=== PATIENT | male | born 1945 | race Caucasian/White ===

== ENCOUNTER 2020-05-12 03:07 | Inpatient (IN) | payer MEDICARE, OTHER ==
[~2020-05-12] VITALS: Ht 172.7 cm; Wt 65.1 kg
--- NOTE | 2020-05-12 03:56 | RAD ---
XR FEMUR_LEFT 1 VIEW, XR PELVIS 1-2V 05/12/2020 3:27 AM INDICATION: Fall COMPARISON: None available. TECHNIQUE: AP view the pelvis and 4 views of the left femur are provided. FINDINGS/ IMPRESSION: Left total hip arthroplasty is identified. There is an obliquely oriented fracture with minimal displ acement involving the distal margin of the femoral hardware. Adjacent soft tissue swelling is present . Vascular calcifications are present. Pelvic ring appears intact. Electronically signed by: Jeanne Short MD (05/12/2020 3:53 AM) YFN
--- NOTE | 2020-05-12 04:06 | RAD ---
XR CHEST 1V 05/12/2020 4:02 AM INDICATION: Preoperative COMPARISON: None available TECHNIQUE: Portable frontal view of the chest is provided. FINDINGS: The cardiomediastinal silhouette is within normal limits. Lungs are clear. There are no significant pleural effusions. There is no pulmonary vascular congestion. No pneumothora x. No suspicious osseous abnormality. IMPRESSION: There is no acute cardiopulmonary process. Electronically signed by: Jeanne Short MD (05/12/2020 4:04 AM) [facility]
[2020-05-12 04:43] LABS: BASO # 0.1 x10^3/uL (0.0-0.2); BASO % 1 % (0-3); EOS # 0.2 x10^3/uL (0.0-0.7); EOS % 2 % (0-3); HEMATOCRIT 40.5 % (39.0-53.0); HEMOGLOBIN 13.7 g/dL (13.0-17.5); LYMPH # 1.4 x10^3/uL (1.0-4.8); LYMPH % 18 % (24-48); MEAN CORPUSCULAR HEMOGLOBIN 30 pg (25-35); MEAN CORPUSCULAR HGB CONC 34 g/dL (31-37); MEAN CORPUSCULAR VOLUME 90 fL (79-100); MONO # 0.7 x10^3/uL (0.0-1.1); MONO % 10 % (0-9); NEUT # 5.2 x10^3/uL (1.8-7.7); NEUT % 69 % (31-73); PLATELET COUNT 193 x10^3/uL (140-400); RED BLOOD COUNT 4.51 x10^6/uL (4.30-5.70); RED CELL DISTRIBUTION WIDTH 14.3 % (11.5-14.5); WHITE BLOOD COUNT 7.5 x10^3/uL (4.0-11.0)
[2020-05-12 04:51] LABS: CALCIUM 9.2 mg/dL (8.5-10.1); CREATININE 1.7 mg/dL (0.7-1.3); GFR 39.6; POTASSIUM 4.8 mmol/L (3.5-5.1)
--- NOTE | 2020-05-12 05:43 | ED.ADGEN ---
Past Medical History Past Medical History: Dementia, Depression, High Cholesterol, Hypertension, Other Additional Past Medical Histor: CKD, antisocial personality d/o Past Surgical History: Appendectomy, Other Smoking Status: Never Smoker Alcohol Use: None General Adult EDM: Chief Complaint: MECHANICAL FALL HPI: HPI: Patient 75-year-old male who presents to the emergency room complaining of left hip pain. Patient had a fall from standing 4 days ago. He was able to walk on his leg with his walker but over the last 24 hours has had increasing difficulty with walking and this morning he could not walk at all. He states the pain radiates into his knee. He has had problems with this leg previously. He has a hip replacement but cannot remember who did his hip replacement. He denies hitting his head or any other injuries from the fall. He has no other complaints. Review of Systems: Review of Systems: Complete ROS is negative unless otherwise documented in HPI Allergies: Allergies: Allergies Coded Allergies Type Severity Reaction Last Updated Verified No Known Drug Allergies 05/12/20 No Physical Exam: PE: General: Awake, alert, NAD. Well Nourished, well hydrated. Cooperative HEENT: Atraumatic, EOMI, PERRL, airway patent, moist oral mucosa Neck: Supple, trachea midline Respiratory: CTA bilaterally, normal effort, no wheezing/crackles CV: RRR, no murmur, cap refill <2 GI: Soft, nondistended, nontender, no masses MSK: Left hip tenderness, swelling to the thigh Skin: Warm, dry, intact Neuro: A&O x1, speech NL, sensory and motor grossly intact, no focal deficits Psych: Normal affect, normal mood, not suicidal or homicidal Current Patient Data: Labs: Laboratory Tests Test 05/12/20 04:30 White Blood Count 7.5 x10^3/uL (4.0-11.0) Red Blood Count 4.51 x10^6/uL (4.30-5.70) Hemoglobin 13.7 g/dL (13.0-17.5) Hematocrit 40.5 % (39.0-53.0) Mean Corpuscular Volume 90 fL (79-100) Mean Corpuscular Hemoglobin 30 pg (25-35) Mean Corpuscular Hemoglobin Concent 34 g/dL (31-37) Red Cell Distribution Width 14.3 % (11.5-14.5) Platelet Count 193 x10^3/uL (140-400) Neutrophils (%) (Auto) 69 % (31-73) Lymphocytes (%) (Auto) 18 % (24-48) L Monocytes (%) (Auto) 10 % (0-9) H Eosinophils (%) (Auto) 2 % (0-3) Basophils (%) (Auto) 1 % (0-3) Neutrophils # (Auto) 5.2 x10^3/uL (1.8-7.7) Lymphocytes # (Auto) 1.4 x10^3/uL (1.0-4.8) Monocytes # (Auto) 0.7 x10^3/uL (0.0-1.1) Eosinophils # (Auto) 0.2 x10^3/uL (0.0-0.7) Basophils # (Auto) 0.1 x10^3/uL (0.0-0.2) Sodium Level 137 mmol/L (136-145) Potassium Level 4.8 mmol/L (3.5-5.1) Chloride Level 102 mmol/L (98-107) Carbon Dioxide Level 27 mmol/L (21-32) Anion Gap 8 (6-14) Blood Urea Nitrogen 27 mg/dL (8-26) H Creatinine 1.7 mg/dL (0.7-1.3) H Estimated GFR (Cockcroft-Gault) 39.6 Glucose Level 101 mg/dL (70-99) H Calcium Level 9.2 mg/dL (8.5-10.1) Laboratory Tests 05/12/20 04:30 Laboratory Tests 05/12/20 04:30 Vital Signs: Vital Signs Date Time Temp Pulse Resp B/P (MAP) Pulse Ox O2 Delivery O2 Flow Rate FiO2 05/12/20 03:15 98.4 83 20 146/72 (96) 98 Room Air 98.4 EKG: EKG: [] Heart Score: Risk Factors: Risk Factors: DM, Current or recent (<one month) smoker, HTN, HLP, family history of CAD, obesity. Risk Scores: Score 0 - 3: 2.5% MACE over next 6 weeks - Discharge Home Score 4 - 6: 20.3% MACE over next 6 weeks - Admit for Clinical Observation Score 7 - 10: 72.7% MACE over next 6 weeks - Early Invasive Strategies Radiology/Procedures: Radiology/Procedures: [] Course & Med Decision Making: Course & Med Decision Making Pertinent Labs and Imaging studies reviewed. (See chart for details) Patient is a 75-year-old male who presents to the emergency room complaining of hip pain after fall 4 days ago. X-rays were done and patient has a femur fracture. Preop labs, EKG, Covid test were ordered. Patient was discussed with orthopedic surgeon who will evaluate him for surgery today. Work up was reviewed and was remarkable for []. At this time, patient would benefit from further work up and management. Patient is not stable for discharge at this time. Results, vitals, interventions, and plan was discussed with the patient. Patient was given opportunity to ask any questions and are in agreement with plan for admission. Patient was discussed with admitting physician and bridge admission orders were placed. Further care will be managed by inpatient team. Sarbjit Disclaimer: Sarbjit Disclaimer: This electronic medical record was generated, in whole or in part, using a voice recognition dictation system. Departure Departure Impression: Primary Impression: Fall Additional Impression: Femur fracture Disposition: 09 ADMITTED INPT THIS HOSP Condition: STABLE Referrals: NO PCP (PCP) Problem Qualifiers HILLARY MANTILLA MD May 12, 2020 05:43
[2020-05-12] MEDS ORDERED: PROCHLORPERAZINE 10 MG/2 ML VIAL. IVP PRN (07:15)
[2020-05-12] MEDS ORDERED: fentaNYL PF VIAL 100 MCG/2 ML VIAL IVP PRN ×2 (07:15)
[2020-05-12] MEDS ORDERED: MORPHINE SULFATE 2 MG/ML VIAL. IVP PRN (07:15)
[2020-05-12] MEDS ORDERED: LIDOCAINE 1% PF 2 ML VIAL. ID PRN (07:15)
[2020-05-12] MEDS ORDERED: IV RINGERS,LACTATED 1000ML 1,000 ML IV SCH (07:15)
[2020-05-12] MEDS ORDERED: ONDANSETRON PF 4 MG/2 ML VIAL. IVP PRN (07:15)
[2020-05-12] MEDS ORDERED: HYDROmorphone 2 MG/ML VIAL IVP PRN (07:15)
--- NOTE | 2020-05-12 08:14 | PDOC1 ---
History and Physical Date of Service: DOS: DATE: 05/12/20 TIME: 08:10 Chief Complaint: Chief Complain: fall History of Present Illness: HPI: 75-year-old male who presents to the emergency room complaining of left hip pain. Patient experienced a fall about 4 days ago. He states that he is unsure why he fell. He denies any loss of consciousness or dizziness or unsteady gait. He was able to walk on his leg with his walker but over the last 24 hours has had increasing difficulty with walking and this morning he could not walk at all. He states the pain radiates into his knee. He has had problems with this leg previously. He has a hip replacement but cannot remember who did his hip replacement. He denies hitting his head or any other injuries from the fall. He has no other complaints. X-rays were done and patient has a femur fracture. Preop labs, EKG, Covid test were ordered. Patient was discussed with orthopedic surgeon who will evaluate him for surgery today. Past Medical/Surgical History: PMH/PSH: Past Medical History: Dementia, Depression, High Cholesterol, Hypertension, CKD, antisocial personality d/o Past Surgical History: Appendectomy Allergies: Allergies: Coded Allergies: No Known Drug Allergies (Unverified , 05/12/20) Family History: Family History: Reviewed with no relevant history Social History: Social History: Smoking Status: Never Smoker Alcohol Use: None Current Medications: Current Medications Current Medications Ondansetron HCl (Zofran) 4 mg PRN Q6HRS PRN IVP NAUSEA/VOMITING; Start 05/12/20 at 07:15; Stop 05/12/20 at 20:00 Fentanyl Citrate (Fentanyl 2ml Vial) 25 mcg PRN Q5MIN PRN IVP MILD PAIN 1-3; Start 05/12/20 at 07:15; Stop 05/12/20 at 20:00 Fentanyl Citrate (Fentanyl 2ml Vial) 50 mcg PRN Q5MIN PRN IVP MODERATE TO SEVERE PAIN; Start 05/12/20 at 07:15; Stop 05/12/20 at 20:00 Morphine Sulfate (Morphine Sulfate) 1 mg PRN Q10MIN PRN IVP SEVERE PAIN 7-10; Start 05/12/20 at 07:15; Stop 05/12/20 at 20:00 Ringer's Solution 1,000 ml @ 30 mls/hr Q24H IV ; Start 05/12/20 at 07:15; Stop 05/12/20 at 19:14 Lidocaine HCl (Xylocaine-Mpf 1% 2ml Vial) 2 ml 1X PRN PRN ID IV START; Start 05/12/20 at 07:15; Stop 05/12/20 at 20:00 Hydromorphone HCl (Dilaudid) 0.5 mg PRN Q10MIN PRN IVP SEV PAIN, Second choice; Start 05/12/20 at 07:15; Stop 05/12/20 at 20:00 Prochlorperazine Edisylate (Compazine) 5 mg PACU PRN PRN IVP NAUSEA, MRX1; Start 05/12/20 at 07:15; Stop 05/12/20 at 20:00 ROS: Review of Systems Review of System REVIEW OF SYSTEMS: GENERAL: Denies weakness SKIN: No bruising, hair changes or rashes. EYES: No blurred, double or loss of vision. NOSE AND THROAT: No history of nosebleeds, hoarseness or sore throat. HEART: No history of palpitations, chest pain or shortness of breath on exertion. LUNGS: Denies cough, hemoptysis, wheezing or shortness of breath. GASTROINTESTINAL: Denies changes in appetite, nausea, vomiting, diarrhea or constipation. GENITOURINARY: No history of frequency, urgency, hesitancy or nocturia. NEUROLOGIC: Denies history of numbness, tingling, or tremor. PSYCHIATRIC: No history of panic, anxiety or depression. ENDOCRINE: No history of heat or cold intolerance, polyuria or polydipsia. EXTREMITIES: Denies joint pain, pain on walking or stiffness. Physical Exam: Vital Signs: Vital Signs Date Time Temp Pulse Resp B/P (MAP) Pulse Ox O2 Delivery O2 Flow Rate FiO2 05/12/20 07:23 82 96 05/12/20 03:15 98.4 20 146/72 (96) Room Air 98.4 Physcial Exam: GEN: No apparent distress. Alert and oriented HEENT: Normal cephalic, atraumatic, external auditory canals are patent EYES: Extraocular muscles are intact, pupil are equally round and reactive to light and accommodation MUSCULOSKELETAL: Well developed , well nourished, good range of motion ENDOCRINE: No thyromegaly was palpated LYMPHATICS: No cervical chain or axillary nodes were noted HEMATOPOIETIC: No bruising NECK: Supple, no JVD, no thyromegaly was noted LUNGS: Clear to auscultation in all lung cagle without rhonchi or wheezing HEART: RRR, S!, S2 present. Peripheral pulses intact, no obvious murmurs noted ABDOMEN: Soft, nontender. Positive bowel sounds, no organomegaly, normal bowel sounds EXTREMITIES: Without clubbing, cyanosis, or edema. Pedal pulses intact. Negative Homans sign NEUROLOGIC: Normal speech and tone. A&O x 3, moves all extremities, no ob vious focal deficits PSYCHIATRIC: Normal affect, normal mood. Stable SKIN: No ulcerations or rashes, good skin turgor, no jaundice VASCULAR: Good capillary refill, neurovascular bundle appears to be intact Labs: Labs: Laboratory Tests Test 05/12/20 04:30 05/12/20 05:30 05/12/20 07:17 White Blood Count 7.5 x10^3/uL (4.0-11.0) Red Blood Count 4.51 x10^6/uL (4.30-5.70) Hemoglobin 13.7 g/dL (13.0-17.5) Hematocrit 40.5 % (39.0-53.0) Mean Corpuscular Volume 90 fL (79-100) Mean Corpuscular Hemoglobin 30 pg (25-35) Mean Corpuscular Hemoglobin Concent 34 g/dL (31-37) Red Cell Distribution Width 14.3 % (11.5-14.5) Platelet Count 193 x10^3/uL (140-400) Neutrophils (%) (Auto) 69 % (31-73) Lymphocytes (%) (Auto) 18 % (24-48) Monocytes (%) (Auto) 10 % (0-9) Eosinophils (%) (Auto) 2 % (0-3) Basophils (%) (Auto) 1 % (0-3) Neutrophils # (Auto) 5.2 x10^3/uL (1.8-7.7) Lymphocytes # (Auto) 1.4 x10^3/uL (1.0-4.8) Monocytes # (Auto) 0.7 x10^3/uL (0.0-1.1) Eosinophils # (Auto) 0.2 x10^3/uL (0.0-0.7) Basophils # (Auto) 0.1 x10^3/uL (0.0-0.2) Sodium Level 137 mmol/L (136-145) Potassium Level 4.8 mmol/L (3.5-5.1) Chloride Level 102 mmol/L (98-107) Carbon Dioxide Level 27 mmol/L (21-32) Anion Gap 8 (6-14) Blood Urea Nitrogen 27 mg/dL (8-26) Creatinine 1.7 mg/dL (0.7-1.3) Estimated GFR (Cockcroft-Gault) 39.6 Glucose Level 101 mg/dL (70-99) Calcium Level 9.2 mg/dL (8.5-10.1) SARS-CoV-2 Antigen (Rapid) Negative (NEGATIVE) Troponin I Quantitative 0.296 ng/mL (0.000-0.055) Laboratory Tests Test 05/12/20 04:30 05/12/20 05:30 05/12/20 07:17 White Blood Count 7.5 x10^3/uL (4.0-11.0) Red Blood Count 4.51 x10^6/uL (4.30-5.70) Hemoglobin 13.7 g/dL (13.0-17.5) Hematocrit 40.5 % (39.0-53.0) Mean Corpuscular Volume 90 fL (79-100) Mean Corpuscular Hemoglobin 30 pg (25-35) Mean Corpuscular Hemoglobin Concent 34 g/dL (31-37) Red Cell Distribution Width 14.3 % (11.5-14.5) Platelet Count 193 x10^3/uL (140-400) Neutrophils (%) (Auto) 69 % (31-73) Lymphocytes (%) (Auto) 18 % (24-48) Monocytes (%) (Auto) 10 % (0-9) Eosinophils (%) (Auto) 2 % (0-3) Basophils (%) (Auto) 1 % (0-3) Neutrophils # (Auto) 5.2 x10^3/uL (1.8-7.7) Lymphocytes # (Auto) 1.4 x10^3/uL (1.0-4.8) Monocytes # (Auto) 0.7 x10^3/uL (0.0-1.1) Eosinophils # (Auto) 0.2 x10^3/uL (0.0-0.7) Basophils # (Auto) 0.1 x10^3/uL (0.0-0.2) Sodium Level 137 mmol/L (136-145) Potassium Level 4.8 mmol/L (3.5-5.1) Chloride Level 102 mmol/L (98-107) Carbon Dioxide Level 27 mmol/L (21-32) Anion Gap 8 (6-14) Blood Urea Nitrogen 27 mg/dL (8-26) Creatinine 1.7 mg/dL (0.7-1.3) Estimated GFR (Cockcroft-Gault) 39.6 Glucose Level 101 mg/dL (70-99) Calcium Level 9.2 mg/dL (8.5-10.1) SARS-CoV-2 Antigen (Rapid) Negative (NEGATIVE) Troponin I Quantitative 0.296 ng/mL (0.000-0.055) Images: Images CXR Impression: 1. No acute cardiopulmonary process. HIP XR IMPRESSION: Left total hip arthroplasty is identified. There is an obliquely oriented fracture with minimal displacement involving the distal margin of the femoral hardware. Adjacent soft tissue swelling is present. Vascular calcifications are present. Pelvic ring appears intact. Assessment/Plan Assessment/Plan Mechanical fall NEYDA due to vasomotor nephropathy Elevated troponins concern for demand ischemia Admit to medicine for further management Fall precautions Orthopedic consult Cardiology consult for preoperative risk ratification Lovenox for DVT prophylaxis Protonix GI prophylaxis ADA diet Full code Discussed with RN and SW Disposition pending Ortho evaluation Surrogate decision maker is undesignated Justifications for Admission Other Justification NOE MANUEL MD May 12, 2020 08:14
[2020-05-12] MEDS ORDERED: ASPIRIN CHEWABLE 81 MG TABLET. PO ONE (09:00)
--- NOTE | 2020-05-12 09:04 | PDOC2 ---
DANA MCCARTY WEB MARKETING SPECIALIST 05/12/20 0904: CARDIAC CONSULT DATE OF CONSULT Date of Consult DATE: 05/12/20 TIME: 08:49 REASON FOR CONSULT Reason for Consult: Elevated troponin REFERRING PHYSICIAN Referring Physician: Dr. Velazquez SOURCE Source: Chart review HISTORY OF PRESENT ILLNESS HISTORY OF PRESENT ILLNESS This is a 75 yo male who presented from nursing facility secondary to left hip pain. Pain had a fall the evening of 05/09. Was reaching for remote control and feel. No complaints of dizziness or syncope. Did not his head. No obvious injury. Had full ROM of extremities. Over the last 24hrs, has had increasing difficulty ambulating with walker. At 3 am yesterday, had complaints of chest pain, back pain and hip pain. Blood pressure was 164/80. No SOA. He was brought into the ED for further evaluation and treatment. Has had previous hip replacement. Further imaging noted an obliquely oriented fracture with minimal displacement involving the distal margin of the femoral hardware. Due to complaints of chest pain, troponin level was obtained. Was noted to be mildly elevated, which prompted this consult. Patient reports he has been experiencing sharp pain in his right chest for the last month. Radiated around to his back. Has been occurring daily. Last for about 30 minutes and resolved without intervention. Not related to anything specific. No associated dizziness, diaphoresis, palpitations, or SOA. EKG shows SR with lateral twave inversions. No previous for comparison. No known previous cardiac workup. PAST MEDICAL HISTORY Cardiovascular: HTN, Hyperlipidemia CENTRAL NERVOUS SYSTEM: Dementia Psych: Depression, Other Musculoskeletal: Osteoarthritis Renal/: Chronic renal insuff PAST SURGICAL HISTORY Past Surgical History: Total hip replacement (left ), Other FAMILY HISTORY Family History: Other (non contributory ) SOCIAL HISTORY Smoke: No ALCOHOL: none Drugs: None Lives: [facility] ALLERGIES ALLERGIES: Coded Allergies: No Known Drug Allergies (Unverified , 05/12/20) ROS Review of System 14 point ROS conducted with pertinent positives noted above in hPI PHYSICAL EXAM General: Alert, Oriented X3, Cooperative, No acute distress HEENT: Atraumatic Lungs: Clear to auscultation Heart: Regular rate Abdomen: Soft Extremities: No edema, Other (left hip pain ) Skin: No significant lesion Neuro: Normal speech, Sensation intact Psych/Mental Status: Mental status NL, Mood NL MUSCULOSKELETAL: Osteoarthritic changes both hands VITALS/I&O VITALS/I&O: Vital Signs Date Time Temp Pulse Resp B/P (MAP) Pulse Ox O2 Delivery O2 Flow Rate FiO2 05/12/20 08:36 67 94 05/12/20 03:15 98.4 20 146/72 (96) Room Air 98.4 LABS Lab: Laboratory Tests Test 05/12/20 04:30 05/12/20 05:30 05/12/20 07:17 White Blood Count 7.5 x10^3/uL (4.0-11.0) Red Blood Count 4.51 x10^6/uL (4.30-5.70) Hemoglobin 13.7 g/dL (13.0-17.5) Hematocrit 40.5 % (39.0-53.0) Mean Corpuscular Volume 90 fL (79-100) Mean Corpuscular Hemoglobin 30 pg (25-35) Mean Corpuscular Hemoglobin Concent 34 g/dL (31-37) Red Cell Distribution Width 14.3 % (11.5-14.5) Platelet Count 193 x10^3/uL (140-400) Neutrophils (%) (Auto) 69 % (31-73) Lymphocytes (%) (Auto) 18 % (24-48) L Monocytes (%) (Auto) 10 % (0-9) H Eosinophils (%) (Auto) 2 % (0-3) Basophils (%) (Auto) 1 % (0-3) Neutrophils # (Auto) 5.2 x10^3/uL (1.8-7.7) Lymphocytes # (Auto) 1.4 x10^3/uL (1.0-4.8) Monocytes # (Auto) 0.7 x10^3/uL (0.0-1.1) Eosinophils # (Auto) 0.2 x10^3/uL (0.0-0.7) Basophils # (Auto) 0.1 x10^3/uL (0.0-0.2) Sodium Level 137 mmol/L (136-145) Potassium Level 4.8 mmol/L (3.5-5.1) Chloride Level 102 mmol/L (98-107) Carbon Dioxide Level 27 mmol/L (21-32) Anion Gap 8 (6-14) Blood Urea Nitrogen 27 mg/dL (8-26) H Creatinine 1.7 mg/dL (0.7-1.3) H Estimated GFR (Cockcroft-Gault) 39.6 Glucose Level 101 mg/dL (70-99) H Calcium Level 9.2 mg/dL (8.5-10.1) SARS-CoV-2 Antigen (Rapid) Negative (NEGATIVE) Troponin I Quantitative 0.296 ng/mL (0.000-0.055) Laboratory Tests 05/12/20 04:30 Laboratory Tests 05/12/20 04:30 ASSESSMENT/PLAN ASSESSMENT/PLAN 1. Left hip pain secondary to fall 05/09 with fracture of the distal margin of the femoral hardware. 2. Chest pain, atypical features. 3. Mild troponin elevation; initial 0.2. EKG with lateral t-wave inversion. No previous for comparison. No known previous cardiac workup 4. CKD 5. Hypertension; controlled 6. Hyperlipidemia 7. Dementia Recommendations ASA Lipids Trend troponin Echo to assess LV systolic function Further pending above. SHANNON BUI MD 05/12/20 6947: CARDIAC CONSULT ASSESSMENT/PLAN ASSESSMENT/PLAN Patient seen and evaluated. I agree with our nurse practitioners assessment and plan. Left hip pain secondary to fall 05/09 with fracture of the distal margin of the femoral hardware. Orthopedic evaluation pending. Chest pain, atypical features. Minimal elevation of troponin at 0.2. EKG with lateral T wave inversions with no previous EKGs. Will trend troponin. Start aspirin. Check an echocardiogram for LV function. CKD. Monitoring lab. Hypertension; controlled Hyperlipidemia. Checking a lipid panel. DANA MCCARTY APRN May 12, 2020 09:04 SHANNON BUI MD May 12, 2020 17:53
--- NOTE | 2020-05-12 12:30 | EKG ---
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
[2020-05-12] MEDS ORDERED: LIDOCAINE 2% PF 5 ML VIAL. ONE (12:55)
[2020-05-12] MEDS ORDERED: fentaNYL PF VIAL 100 MCG/2 ML VIAL ONE (12:55)
[2020-05-12] MEDS ORDERED: PROPOFOL 10 MG/ML (20ML) VIAL. IV ONE (12:55)
[2020-05-12] MEDS ORDERED: PERFLUTREN PROTEIN-A MICROSPHR 0.22 MG/ML 3 ML VIAL. IV ONE ×2 (14:55→15:00)
[2020-05-12 15:00] VITALS: BP 171/80
[2020-05-12 19:00] VITALS: BP 186/89
[2020-05-12] MEDS: METOPROLOL TART IMMED RELEASE 25 MG TABLET. PO SCH (20:48)
[2020-05-12] MEDS: fentaNYL PF VIAL 100 MCG/2 ML VIAL IVP PRN (20:52)
--- NOTE | 2020-05-12 20:59 | CONS ---
DATE OF CONSULTATION: 05/12/2020 REQUESTING PHYSICIAN: Dr. Kaity Topete from [facility] as well as Dr. Tomas Owusu. REASON FOR CONSULTATION: Left periprosthetic femur fracture. HISTORY OF PRESENT ILLNESS: The patient is a 75-year-old male, resident of the [facility], who according to the staff at the facility had a fall from standing height about 4 days ago and had previously been ambulatory with a walker and sometimes assistance of a gait belt and does have dementia, but noted increasing pain and refusal to bear weight on the left leg and he could not walk even with assistance of the walker or other assistance and has pain in the left hip and thigh area. He does have a history of previous hip replacement on that side, but he does not remember where it was done nor did anyone in the facility that I spoke with. As the patient has dementia, some of the medical history had been obtained from speaking to his caregivers at the [facility] as well as the minimal amount from the patient himself. He does, however, deny any loss of consciousness or head injury due to the fall. PAST MEDICAL HISTORY: Significant for: 1. Dementia. 2. Hypercholesterolemia. 3. Hypertension. 4. Depression. 5. Diagnosis of antisocial personality disorder. PAST SURGICAL HISTORY: 1. Appendectomy. 2. Hemiarthroplasty for hip fracture earlier this year. ALLERGIES: He has no known drug allergies. SOCIAL HISTORY: Denies smoking, alcohol or drug use. This is consistently documented in his information from the facility as well. FAMILY HISTORY: Unknown. MEDICATIONS: List is reviewed. REVIEW OF SYSTEMS: Generally unreliable due to his dementia; however, he again complains of hip pain. Denies any other joint pain. Again, denies any loss of consciousness or other injury or weakness due to the fall. PHYSICAL EXAMINATION: GENERAL: He is somewhat confused, but is able to participate in the examination. EXTREMITIES: He is able to move both shoulders, elbows and wrists without any difficulty. No tenderness, instability or pain on palpation is present. No tenderness on palpation over the neck or back. No obvious facial trauma. On examination of lower extremities, he has pain with movement of the left hip or palpation over the left thigh area. There is no gross instability, but he does have tenderness on weightbearing through an extended left extremity, not present on the right. Negative straight leg raise is present on either side. Normal alignment with stability, bilateral knees and ankles. Normal examination of the contralateral right hip. On the left hip, an incision from previous hemiarthroplasty of his left hip. He appears to have intact motor function, distal pulses, sensation, reflexes, skin in both upper and lower extremities throughout. IMAGING: X-rays of the left femur show a well-fixated bipolar hemiarthroplasty component with evidence of an oblique fracture with minimal displacement at the distal portion of the femoral stem. IMPRESSION: 1. Left periprosthetic femur fracture. 2. Dementia. 3. Previous ambulation with assistance of a walker or assistance with a gait belt at his half-way facility. TREATMENT PLAN: His fracture is not displaced at this time. I am concerned, however, based on the course of events at the facility as well as his dementia that it may be very difficult to keep him restricted in terms of protected minimal weightbearing to allow healing. There is a significant chance of displacement and I am also concerned potentially if he does forget and inadvertently walk or put weight on this and the fracture does displace, he could potentially undergo another fall with other injury possible. I therefore obstetrician gynecologist that overall given the stress concentration at the tip of the implant that some supplemental fixation would be recommended to allow him to ambulate really without restriction, particularly given the risk factors that he has and the factors that would limit his compliance. Currently, he is undergoing workup for cardiac issues as his troponin was elevated and we can further evaluate risk for potential surgical intervention with his cardiac and medical consultants. CHRISTOPHER CALDERON MD DR: CHARMAINE/cesia JOB#: [id number] / [id number]
--- NOTE | 2020-05-12 22:17 | EKG ---
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
--- NOTE | 2020-05-12 22:20 | EKG ---
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
[2020-05-12 23:00] VITALS: BP 144/76
[2020-05-12] MEDS ORDERED: ACET325T9 PO (23:27)
[2020-05-12] MEDS ORDERED: ASPI-630 PO (23:30)
[2020-05-12] MEDS ORDERED: CYAN10002 IM (23:30)
[2020-05-12] MEDS ORDERED: LISI2.5T PO (23:30)
[2020-05-12] MEDS ORDERED: FOLI0.8T5 PO (23:30)
[2020-05-13] MEDS: fentaNYL PF VIAL 100 MCG/2 ML VIAL IVP PRN ×2 (02:41→15:25)
[2020-05-13 03:00] VITALS: BP 113/39
[2020-05-13 07:00] VITALS: BP 159/83
[2020-05-13] MEDS: ASPIRIN ENTERIC COATED 81 MG TABLET.DR. PO SCH (08:00)
[2020-05-13 08:50] LABS: BASO # 0.1 x10^3/uL (0.0-0.2); BASO % 1 % (0-3); EOS # 0.2 x10^3/uL (0.0-0.7); EOS % 2 % (0-3); HEMATOCRIT 38.7 % (39.0-53.0); HEMOGLOBIN 13.1 g/dL (13.0-17.5); LYMPH # 1.1 x10^3/uL (1.0-4.8); LYMPH % 14 % (24-48); MEAN CORPUSCULAR HEMOGLOBIN 30 pg (25-35); MEAN CORPUSCULAR HGB CONC 34 g/dL (31-37); MEAN CORPUSCULAR VOLUME 90 fL (79-100); MONO # 0.7 x10^3/uL (0.0-1.1); MONO % 9 % (0-9); NEUT # 5.9 x10^3/uL (1.8-7.7); NEUT % 74 % (31-73); PLATELET COUNT 179 x10^3/uL (140-400); RED BLOOD COUNT 4.32 x10^6/uL (4.30-5.70); RED CELL DISTRIBUTION WIDTH 14.2 % (11.5-14.5); WHITE BLOOD COUNT 7.9 x10^3/uL (4.0-11.0)
[2020-05-13] MEDS: METOPROLOL TART IMMED RELEASE 25 MG TABLET. PO SCH ×2 (09:00→21:32)
[2020-05-13 09:01] LABS: CALCIUM 9.1 mg/dL (8.5-10.1); CREATININE 1.6 mg/dL (0.7-1.3); GFR 42.5; MAGNESIUM 1.9 mg/dL (1.8-2.4); POTASSIUM 4.9 mmol/L (3.5-5.1)
[2020-05-13 09:08] LABS: CHOLESTEROL/HDL RATIO 8.3
--- NOTE | 2020-05-13 10:09 | PDOC ---
CARDIO Progress Notes Date and Time Date of Service 05/13/20 Time of Evaluation 1000 Subjective Subjective: No Chest Pain, No shortness of breath, No Palpitations, Other (left hip pain) Vitals Vitals Vital Signs Date Time Temp Pulse Resp B/P (MAP) Pulse Ox O2 Delivery O2 Flow Rate FiO2 05/13/20 08:00 Room Air 05/13/20 07:00 98.5 92 18 159/83 (108) 95 98.5 Weight Weight [ ] Input and Output Intake and Output Intake and Output 05/13/20 07:00 Intake Total 120 ml Balance 120 ml Intake Oral 120 ml # Voids 1 # Bowel Movements 1 Laboratory Labs Laboratory Tests Test 05/12/20 11:13 05/12/20 15:00 05/13/20 08:25 Troponin I Quantitative 0.309 ng/mL (0.000-0.055) 0.213 ng/mL (0.000-0.055) White Blood Count 7.9 x10^3/uL (4.0-11.0) Red Blood Count 4.32 x10^6/uL (4.30-5.70) Hemoglobin 13.1 g/dL (13.0-17.5) Hematocrit 38.7 % (39.0-53.0) Mean Corpuscular Volume 90 fL (79-100) Mean Corpuscular Hemoglobin 30 pg (25-35) Mean Corpuscular Hemoglobin Concent 34 g/dL (31-37) Red Cell Distribution Width 14.2 % (11.5-14.5) Platelet Count 179 x10^3/uL (140-400) Neutrophils (%) (Auto) 74 % (31-73) Lymphocytes (%) (Auto) 14 % (24-48) Monocytes (%) (Auto) 9 % (0-9) Eosinophils (%) (Auto) 2 % (0-3) Basophils (%) (Auto) 1 % (0-3) Neutrophils # (Auto) 5.9 x10^3/uL (1.8-7.7) Lymphocytes # (Auto) 1.1 x10^3/uL (1.0-4.8) Monocytes # (Auto) 0.7 x10^3/uL (0.0-1.1) Eosinophils # (Auto) 0.2 x10^3/uL (0.0-0.7) Basophils # (Auto) 0.1 x10^3/uL (0.0-0.2) Sodium Level 136 mmol/L (136-145) Potassium Level 4.9 mmol/L (3.5-5.1) Chloride Level 103 mmol/L (98-107) Carbon Dioxide Level 23 mmol/L (21-32) Anion Gap 10 (6-14) Blood Urea Nitrogen 27 mg/dL (8-26) Creatinine 1.6 mg/dL (0.7-1.3) Estimated GFR (Cockcroft-Gault) 42.5 Glucose Level 95 mg/dL (70-99) Calcium Level 9.1 mg/dL (8.5-10.1) Magnesium Level 1.9 mg/dL (1.8-2.4) Creatine Kinase 40 U/L (39-308) Triglycerides Level 238 mg/dL (0-150) Cholesterol Level 258 mg/dL (0-200) LDL Cholesterol, Calculated 179 mg/dL (0-100) VLDL Cholesterol, Calculated 48 mg/dL (0-40) Non-HDL Cholesterol Calculated 227 mg/dL (0-129) HDL Cholesterol 31 mg/dL (40-60) Cholesterol/HDL Ratio 8.3 Thyroid Stimulating Hormone (TSH) 1.150 uIU/mL (0.358-3.74) Physical Exam HEENT: Neck Supple W Full Motion Chest: Symmetric LUNGS: Clear to Auscultation Heart: RRR Abdomen: Soft N/T Extremities: No Edema Neurology: alert, follow commands Assessment Assessment 1. Left hip pain secondary to fall 05/09 with fracture of the distal margin of the femoral hardware. 2. Chest pain, atypical features. 3. Mild troponin elevation; peak 0.3. EKG with lateral t-wave inversion. No previous for comparison. No known previous cardiac workup. Presently CP free 4. CKD 5. Hypertension; controlled 6. Hyperlipidemia; LDL 179 7. Dementia Recommendations Continue ASA and BB Add statin Echo today to assess LV systolic function Would be at moderate risk for noncardiac surgery unless significant LV dysfuction is noted. Justicifation of Admission Dx: Justifications for Admission: Justification of Admission Dx: Yes DANA MCCARTY APRN May 13, 2020 10:08
--- NOTE | 2020-05-13 10:16 | PDOC ---
[facility] PROGRESS NOTE Date of Service DOS: DATE: 05/13/20 TIME: 10:12 Chief Complaint Chief Complaint Mechanical fall NEYDA due to vasomotor nephropathy Elevated troponins concern for demand ischemia Admit to medicine for further management Fall precautions Appreciate orthopedic recommendationspending cardiology preoperative assessment. Orthopedics does plan for surgery if viable. Cardiology consult for preoperative risk ratification Pending echocardiogram Lovenox for DVT prophylaxis Protonix GI prophylaxis ADA diet Full code Discussed with RN and SW Disposition pending Ortho evaluation Surrogate decision maker is undesignated History of Present Illness History of Present Illness 05/13/2020 No acute events overnight. Patient saturating 90% on room air. Pending echoc ardiogram today. Patient resting comfortably in bed. Patient's chart, labs, images were reviewed and discussed with RN 75-year-old male who presents to the emergency room complaining of left hip pain. Patient experienced a fall about 4 days ago. He states that he is unsure why he fell. He denies any loss of consciousness or dizziness or unsteady gait. He was able to walk on his leg with his walker but over the last 24 hours has had increasing difficulty with walking and this morning he could not walk at all. He states the pain radiates into his knee. He has had problems with this leg previously. He has a hip replacement but cannot remember who did his hip replacement. He denies hitting his head or any other injuries from the fall. He has no other complaints. Vitals/I&O Vitals/I&O: Vital Signs Date Time Temp Pulse Resp B/P (MAP) Pulse Ox O2 Delivery O2 Flow Rate FiO2 05/13/20 08:00 Room Air 05/13/20 07:00 98.5 92 18 159/83 (108) 95 98.5 I & O 05/12/20 05/12/20 05/13/20 15:00 23:00 07:00 Intake Total 0 ml 120 ml Balance 0 ml 120 ml Physical Exam General: Alert, Oriented X3, Cooperative, No acute distress Heart: Regular rate Abdomen: Soft Extremities: No edema, Other (left hip pain ) Skin: No significant lesion Labs Labs: Laboratory Tests Test 05/12/20 11:13 05/12/20 15:00 05/13/20 08:25 Troponin I Quantitative 0.309 ng/mL (0.000-0.055) 0.213 ng/mL (0.000-0.055) White Blood Count 7.9 x10^3/uL (4.0-11.0) Red Blood Count 4.32 x10^6/uL (4.30-5.70) Hemoglobin 13.1 g/dL (13.0-17.5) Hematocrit 38.7 % (39.0-53.0) Mean Corpuscular Volume 90 fL (79-100) Mean Corpuscular Hemoglobin 30 pg (25-35) Mean Corpuscular Hemoglobin Concent 34 g/dL (31-37) Red Cell Distribution Width 14.2 % (11.5-14.5) Platelet Count 179 x10^3/uL (140-400) Neutrophils (%) (Auto) 74 % (31-73) Lymphocytes (%) (Auto) 14 % (24-48) Monocytes (%) (Auto) 9 % (0-9) Eosinophils (%) (Auto) 2 % (0-3) Basophils (%) (Auto) 1 % (0-3) Neutrophils # (Auto) 5.9 x10^3/uL (1.8-7.7) Lymphocytes # (Auto) 1.1 x10^3/uL (1.0-4.8) Monocytes # (Auto) 0.7 x10^3/uL (0.0-1.1) Eosinophils # (Auto) 0.2 x10^3/uL (0.0-0.7) Basophils # (Auto) 0.1 x10^3/uL (0.0-0.2) Sodium Level 136 mmol/L (136-145) Potassium Level 4.9 mmol/L (3.5-5.1) Chloride Level 103 mmol/L (98-107) Carbon Dioxide Level 23 mmol/L (21-32) Anion Gap 10 (6-14) Blood Urea Nitrogen 27 mg/dL (8-26) Creatinine 1.6 mg/dL (0.7-1.3) Estimated GFR (Cockcroft-Gault) 42.5 Glucose Level 95 mg/dL (70-99) Calcium Level 9.1 mg/dL (8.5-10.1) Magnesium Level 1.9 mg/dL (1.8-2.4) Creatine Kinase 40 U/L (39-308) Triglycerides Level 238 mg/dL (0-150) Cholesterol Level 258 mg/dL (0-200) LDL Cholesterol, Calculated 179 mg/dL (0-100) VLDL Cholesterol, Calculated 48 mg/dL (0-40) Non-HDL Cholesterol Calculated 227 mg/dL (0-129) HDL Cholesterol 31 mg/dL (40-60) Cholesterol/HDL Ratio 8.3 Thyroid Stimulating Hormone (TSH) 1.150 uIU/mL (0.358-3.74) Assessment and Plan Assessmemt and Plan Problems Medical Problems: (1) Fall Status: Acute Comment Review of Relevant I have reviewed the following items hima (where applicable) has been applied. Medications: Current Medications Medications (Trade) Dose Ordered Sig/Yuniel Route PRN Reason Start Time Stop Time Status Last Admin Dose Admin Metoprolol Tartrate (Lopressor) 12.5 mg BID PO 05/12/20 21:00 05/12/20 20:48 Fentanyl Citrate (Fentanyl 2ml Vial) 50 mcg PRN Q2HR PRN IVP PAIN 05/12/20 19:45 05/13/20 02:41 Justifications for Admission Other Justification NOE MANUEL MD May 13, 2020 10:16
[2020-05-13 11:00] VITALS: BP 147/83
--- NOTE | 2020-05-13 12:03 | EKG ---
[facility] [address] [place] [address] Test Date: 2020-05-13 Test Time: 12:01:39 Pat Name: AASHISH LA Department: Room: [facility] Gender: M Bee Worker: [place] : 1945 Requested By: DANA MCCARTY Order Number: [id number] Reading MD: Los Lopez Measurements Intervals [place] Rate: 86 P: 37 [place]: 160 QRS: -27 QRSD: 82 T: 32 QT: 338 QTc: 407 Interpretive Statements SINUS RHYTHM LEFTWARD AXIS Electronically Signed On 05-19-2020 14:46:46 BATTERY INSTALLER by Los Lopez
--- NOTE | 2020-05-13 13:03 | CARD ---
MR#: [id number] Date of Study: 05/12/2020 Ordering Physician: DANA MCCARTY, Referring Physician: DANA MCCARTY, Tech: Jojo Muñoz [facility] APPROVED REPORT EXAM: Two-dimensional and M-mode echocardiogram with Doppler and color Doppler. Other Information Quality : Technically LimitedHR: 78bpm Rhythm : NSR INDICATION Echo Enhancing Agent Indication: Endocardial border delineation Agent/Amount Used: Optison 3mL RISK FACTORS Hyperlipidemia Diabetes Mitral Valve MV E Ctbmxpey78.5cm/sMV A Hyurjubd194.7cm/s E/A Ratio0.5 TDI Lateral E' P. V7.01cm/sMedial E' P. V5.38cm/s E/Lateral E'7.3E/Medial E'9.6 LEFT VENTRICLE The left ventricle is normal size. There is borderline concentric left ventricular hypertrophy. The l eft ventricular systolic function is normal. Estimated ejection fraction 65-70%. There is normal LV s egmental wall motion. Unable to evaluated diastolic fx. RIGHT VENTRICLE The right ventricle is normal size. There is normal right ventricular wall thickness. The right ventr icular systolic function is normal. ATRIA The left atrium appears to be size is normal. The right atrium appears to be size is normal. The inte ratrial septum is intact with no evidence for an atrial septal defect or patent foramen ovale as note d on 2-D or Doppler imaging. AORTIC VALVE AV not well visualized. Doppler and Color Flow revealed no significant aortic regurgitation. There is no significant aortic valvular stenosis. MITRAL VALVE The mitral valve is normal in structure and function. There is no evidence of mitral valve prolapse. There is no mitral valve stenosis. Doppler and Color Flow revealed no mitral valve regurgitation note d. TRICUSPID VALVE The tricuspid valve is normal in structure and function. Doppler and Color Flow revealed no significa nt tricuspid valve regurgitation noted. Unable to calculate PAP. There is no tricuspid valve stenosis . PULMONIC VALVE Not visualized. GREAT VESSELS The aortic root is normal in size. The IVC is normal in size and collapses >50% with inspiration. PERICARDIAL EFFUSION There is no evidence of significant pericardial effusion. Critical Notification Critical Value: No <Conclusion> Technically difficult study. Optison echo contrast used. The left ventricular systolic function is normal. Estimated ejection fraction 65-70%. There is normal LV segmental wall motion. There is no evidence of significant pericardial effusion. Signed by : Los Lopez, Electronically Approved : 05/13/2020 13:03:22
--- NOTE | 2020-05-13 13:41 | NUR ---
SW following for discharge planning. Spoke with RN and reviewed chart. SW met with pt, pt confused. Possible surgery. Possible SNU on discharge. PT/OT to evaluate. COVID pending. Room air, NPO. SW following.
[2020-05-13 15:00] VITALS: BP 146/75
--- NOTE | 2020-05-13 15:49 | NUR ---
PATIENT REMAINS NPO AT THIS TIME, PATIENT HAS BEEN SEEN BY DANA MCCARTY (CARDIOLOGY), EKG ORDERED AND COMPLETED, PATIENT SEEN BY PRIMARY DRKurt THIS SHIFT, AND PHONE CONTACT MADE BY THIS TRAVEL RN WITH DR. CALDERON, NO ORDERS FOR SURGERY AT THIS TIME, IF NO ORDERS RECEIVED BY DINNER THIS TRAVEL RN WILL ALLOW PATIENT TO EAT DINNER AND PLACE NPO STATUS BACK AT MIDNIGHT.
[2020-05-13 19:00] VITALS: BP 130/70
[2020-05-13] MEDS: ATORVASTATIN CALCIUM 40 MG TABLET. PO SCH (21:32)
[2020-05-13 23:00] VITALS: BP 132/74
[2020-05-14 03:00] VITALS: BP 127/74
[2020-05-14 07:00] VITALS: BP 159/73
[2020-05-14] MEDS: ASPIRIN ENTERIC COATED 81 MG TABLET.DR. PO SCH (08:00)
[2020-05-14] MEDS: METOPROLOL TART IMMED RELEASE 25 MG TABLET. PO SCH ×2 (09:00→21:21)
[2020-05-14 11:00] VITALS: BP 142/75
[2020-05-14 13:01] LABS: PROTHROMBIN TIME PATIENT 12.6 SEC (11.7-14.0)
[2020-05-14] MEDS ORDERED: LIDOCAINE 2% PF 5 ML VIAL. ONE (14:13)
[2020-05-14] MEDS ORDERED: DEXAMETHASONE SOD PHOS 4 MG/ML VIAL ONE (14:13)
[2020-05-14] MEDS ORDERED: PROPOFOL 10 MG/ML (20ML) VIAL. IV ONE (14:13)
[2020-05-14] MEDS ORDERED: fentaNYL PF VIAL 100 MCG/2 ML VIAL ONE ×3 (14:13→17:40)
[2020-05-14] MEDS ORDERED: SEVOFLURANE > 120 MINUTES. IH ONE (14:14)
--- NOTE | 2020-05-14 14:23 | PDOC ---
[facility] PROGRESS NOTE Date of Service DOS: DATE: 05/14/20 TIME: 14:22 Chief Complaint Chief Complaint Mechanical fall NEYDA due to vasomotor nephropathy Elevated troponins concern for demand ischemia Admit to medicine for further management Fall precautions Appreciate orthopedic recommendationspending cardiology preoperative assessment. Orthopedics does plan for surgery if viable. Cardiology consult for preoperative risk ratification Pending echocardiogram Lovenox for DVT prophylaxis Protonix GI prophylaxis ADA diet Full code Discussed with RN and SW Disposition pending Ortho evaluation Surrogate decision maker is undesignated History of Present Illness History of Present Illness 05/14/2020 No acute events overnight. Patient is afebrile and saturating well on room air. Pain is well controlled. On-call to the OR for left hip ORIF with Dr. Quijano. Currently n.p.o. Patient's chart, labs, images were reviewed and discussed with RN 05/13/2020 No acute events overnight. Patient saturating 90% on room air. Pending ec hocardiogram today. Patient resting comfortably in bed. Patient's chart, labs, images were reviewed and discussed with RN 75-year-old male who presents to the emergency room complaining of left hip pain. Patient experienced a fall about 4 days ago. He states that he is unsure why he fell. He denies any loss of consciousness or dizziness or unsteady gait. He was able to walk on his leg with his walker but over the last 24 hours has had increasing difficulty with walking and this morning he could not walk at all. He states the pain radiates into his knee. He has had problems with this leg previously. He has a hip replacement but cannot remember who did his hip replacement. He denies hitting his head or any other injuries from the fall. He has no other complaints. Vitals/I&O Vitals/I&O: Vital Signs Date Time Temp Pulse Resp B/P (MAP) Pulse Ox O2 Delivery O2 Flow Rate FiO2 05/14/20 11:00 98.0 80 18 142/75 (97) 96 Room Air 98.0 I & O 05/13/20 05/13/20 05/14/20 15:00 23:00 07:00 Intake Total 150 ml Balance 150 ml Physical Exam General: Alert, Oriented X3, Cooperative, No acute distress Heart: Regular rate Abdomen: Soft Extremities: No edema, Other (left hip pain ) Skin: No significant lesion Labs Labs: Laboratory Tests Test 05/14/20 12:41 Prothrombin Time 12.6 SEC (11.7-14.0) Prothromb Time International Ratio 1.0 (0.8-1.1) Assessment and Plan Assessmemt and Plan Problems Medical Problems: (1) Fall Status: Acute Comment Review of Relevant I have reviewed the following items hima (where applicable) has been applied. Medications: Current Medications Medications (Trade) Dose Ordered Sig/Yuniel Route PRN Reason Start Time Stop Time Status Last Admin Dose Admin Atorvastatin Calcium (Lipitor) 40 mg QHS PO 05/13/20 21:00 05/13/20 21:32 Justifications for Admission Other Justification NOE MANUEL MD May 14, 2020 14:23
[2020-05-14] MEDS ORDERED: IV RINGERS,LACTATED 1000ML 1,000 ML IV ONE (14:45)
--- NOTE | 2020-05-14 15:16 | NUR ---
SW following for discharge planning. Spoke with RN and reviewed chart. COVID result negative. Pt to have surgery today. PT/OT to evaluate. SW following. Addendum: 05/18/20 at 1157 by JAEL CHEN SW Pt identified as BPCI. Discharge planners to follow. No additional needs from this SW
[2020-05-14] MEDS ORDERED: ceFAZolin SODIUM IV Push 1 GM VIAL. IVP ONE (15:33)
[2020-05-14] MEDS ORDERED: PHENYLEPHRINE in 0.9% NACL PF 1 MG/10 ML SYRINGE. IV ONE ×2 (15:49→16:16)
[2020-05-14] MEDS ORDERED: hydrALAZINE 20 MG/ML VIAL. ONE (16:06)
[2020-05-14] MEDS ORDERED: BUPIVACAINE MPF 0.5% 30 ML VIAL. ONE (16:08)
[2020-05-14] MEDS: fentaNYL PF VIAL 100 MCG/2 ML VIAL IVP PRN ×2 (17:43→18:06)
[2020-05-14] MEDS ORDERED: fentaNYL PF VIAL 100 MCG/2 ML VIAL IVP PRN (17:45)
[2020-05-14] MEDS ORDERED: MORPHINE SULFATE 2 MG/ML VIAL. IVP PRN (17:45)
[2020-05-14] MEDS ORDERED: IV RINGERS,LACTATED 1000ML 1,000 ML IV SCH (17:45)
--- NOTE | 2020-05-14 18:10 | PDOC4 ---
Operative Note Operative Note Date of surgery: 05/14/2020 Preoperative diagnosis: Left periprosthetic femur fracture Postoperative diagnosis: Same with significant comminution at distal portion of femoral stem Operative procedure: Operative reduction internal fixation left periprosthetic femur fracture with cable plate and screw fixation Surgeon: Macie Anesthesia: General Estimated blood loss: 300 cc Complications: None Operative indications: Please see my dictated orthopedic consultation for detailed operative indications Operative text: Patient was identified procedure verified and after adequate general anesthesia was administered the left lower extremity was prepped and draped in the standard sterile fashion. After timeout was performed patient procedure identified and verified, an incision was made over the lateral aspect of the left thigh centered over the fracture site using fluoroscopic guidance. Fascia was divided and the vastus lateralis was divided near its posterior insertion and subperiosteal dissection was carried out. A 10 hole NCB Joelle curved femoral fixation plate was selected and centered over the comminuted fracture site and a bicortical fully threaded 4.5 screw was placed distally on the plate distal to the femoral component. A unicortical screw was placed under fluoroscopic guidance to stabilize the reduction and plate. A total of two 1.8 mm stainless steel cables were placed proximally and achieved excellent fracture reduction and plate stability. Distal bicortical screws were placed distal to the fracture site under fluoroscopic guidance and excellent fracture reduction and hardware placement were noted under AP lateral multiple fluoroscopic views. After reduction and hardware placement were verified thorough irrigation carried out normal saline solution fascia was closed with running Vicryl suture subcutaneous closure with buried Vicryl suture skin closure with lindsay sterile dressings were placed and patient was returned to recovery room in stable condition having tolerated procedure well CHRISTOPHER CALDERON MD May 14, 2020 18:09
[2020-05-14 19:00] VITALS: BP 156/76
[2020-05-14] MEDS: ATORVASTATIN CALCIUM 40 MG TABLET. PO SCH (21:21)
[2020-05-14 23:05] VITALS: BP 142/81
[2020-05-15 03:07] VITALS: BP 123/67
[2020-05-15 07:00] VITALS: BP 127/70
[2020-05-15] MEDS: ASPIRIN ENTERIC COATED 81 MG TABLET.DR. PO SCH (09:59)
[2020-05-15] MEDS: METOPROLOL TART IMMED RELEASE 25 MG TABLET. PO SCH ×2 (10:00→20:49)
[2020-05-15 10:15] LABS: BASO % 0 % (0-3); EOS % 0 % (0-3); HEMATOCRIT 35.2 % (39.0-53.0); LYMPH # 1.1 x10^3/uL (1.0-4.8); LYMPH % 12 % (24-48); MEAN CORPUSCULAR HEMOGLOBIN 31 pg (25-35); MEAN CORPUSCULAR HGB CONC 34 g/dL (31-37); MEAN CORPUSCULAR VOLUME 89 fL (79-100); MONO # 1.4 x10^3/uL (0.0-1.1); MONO % 15 % (0-9); NEUT % 73 % (31-73); PLATELET COUNT 204 x10^3/uL (140-400); RED BLOOD COUNT 3.94 x10^6/uL (4.30-5.70); RED CELL DISTRIBUTION WIDTH 14.2 % (11.5-14.5); WHITE BLOOD COUNT 9.6 x10^3/uL (4.0-11.0)
[2020-05-15 10:33] LABS: CALCIUM 9.1 mg/dL (8.5-10.1); CREATININE 1.6 mg/dL (0.7-1.3); GFR 42.5; PHOSPHORUS 3.8 mg/dL (2.6-4.7); POTASSIUM 4.7 mmol/L (3.5-5.1)
[2020-05-15 11:00] VITALS: BP 119/70
--- NOTE | 2020-05-15 11:38 | PDOC ---
PROGRESS NOTES Date of Service DATE: 05/15/20 TIME: 11:36 Subjective Subjective Problems overnight: Patient is sleepy but arousable no complaints Objective Vital Signs Vital Signs Date Time Temp Pulse Resp B/P (MAP) Pulse Ox O2 Delivery O2 Flow Rate FiO2 05/15/20 11:00 99.1 84 18 119/70 (86) 95 Room Air 99.1 05/14/20 17:43 10.0 Physical Exam Left thigh dressing clean dry intact distal neurovascular status intact able to wiggle toes Labs Laboratory Tests Test 05/14/20 12:41 05/15/20 09:40 Prothrombin Time 12.6 SEC (11.7-14.0) Prothromb Time International Ratio 1.0 (0.8-1.1) White Blood Count 9.6 x10^3/uL (4.0-11.0) Red Blood Count 3.94 x10^6/uL (4.30-5.70) Hemoglobin 12.0 g/dL (13.0-17.5) Hematocrit 35.2 % (39.0-53.0) Mean Corpuscular Volume 89 fL (79-100) Mean Corpuscular Hemoglobin 31 pg (25-35) Mean Corpuscular Hemoglobin Concent 34 g/dL (31-37) Red Cell Distribution Width 14.2 % (11.5-14.5) Platelet Count 204 x10^3/uL (140-400) Neutrophils (%) (Auto) 73 % (31-73) Lymphocytes (%) (Auto) 12 % (24-48) Monocytes (%) (Auto) 15 % (0-9) Eosinophils (%) (Auto) 0 % (0-3) Basophils (%) (Auto) 0 % (0-3) Neutrophils # (Auto) 7.0 x10^3/uL (1.8-7.7) Lymphocytes # (Auto) 1.1 x10^3/uL (1.0-4.8) Monocytes # (Auto) 1.4 x10^3/uL (0.0-1.1) Eosinophils # (Auto) 0.0 x10^3/uL (0.0-0.7) Basophils # (Auto) 0.0 x10^3/uL (0.0-0.2) Sodium Level 139 mmol/L (136-145) Potassium Level 4.7 mmol/L (3.5-5.1) Chloride Level 104 mmol/L (98-107) Carbon Dioxide Level 23 mmol/L (21-32) Anion Gap 12 (6-14) Blood Urea Nitrogen 34 mg/dL (8-26) Creatinine 1.6 mg/dL (0.7-1.3) Estimated GFR (Cockcroft-Gault) 42.5 Glucose Level 123 mg/dL (70-99) Calcium Level 9.1 mg/dL (8.5-10.1) Phosphorus Level 3.8 mg/dL (2.6-4.7) Magnesium Level 2.0 mg/dL (1.8-2.4) Laboratory Tests Test 05/14/20 12:41 05/15/20 09:40 Prothrombin Time 12.6 SEC (11.7-14.0) Prothromb Time International Ratio 1.0 (0.8-1.1) White Blood Count 9.6 x10^3/uL (4.0-11.0) Red Blood Count 3.94 x10^6/uL (4.30-5.70) Hemoglobin 12.0 g/dL (13.0-17.5) Hematocrit 35.2 % (39.0-53.0) Mean Corpuscular Volume 89 fL (79-100) Mean Corpuscular Hemoglobin 31 pg (25-35) Mean Corpuscular Hemoglobin Concent 34 g/dL (31-37) Red Cell Distribution Width 14.2 % (11.5-14.5) Platelet Count 204 x10^3/uL (140-400) Neutrophils (%) (Auto) 73 % (31-73) Lymphocytes (%) (Auto) 12 % (24-48) Monocytes (%) (Auto) 15 % (0-9) Eosinophils (%) (Auto) 0 % (0-3) Basophils (%) (Auto) 0 % (0-3) Neutrophils # (Auto) 7.0 x10^3/uL (1.8-7.7) Lymphocytes # (Auto) 1.1 x10^3/uL (1.0-4.8) Monocytes # (Auto) 1.4 x10^3/uL (0.0-1.1) Eosinophils # (Auto) 0.0 x10^3/uL (0.0-0.7) Basophils # (Auto) 0.0 x10^3/uL (0.0-0.2) Sodium Level 139 mmol/L (136-145) Potassium Level 4.7 mmol/L (3.5-5.1) Chloride Level 104 mmol/L (98-107) Carbon Dioxide Level 23 mmol/L (21-32) Anion Gap 12 (6-14) Blood Urea Nitrogen 34 mg/dL (8-26) Creatinine 1.6 mg/dL (0.7-1.3) Estimated GFR (Cockcroft-Gault) 42.5 Glucose Level 123 mg/dL (70-99) Calcium Level 9.1 mg/dL (8.5-10.1) Phosphorus Level 3.8 mg/dL (2.6-4.7) Magnesium Level 2.0 mg/dL (1.8-2.4) Imaging Intra-Op fluoroscopic views show anatomic reduction of periprosthetic distal femur fracture Assessment Assessment POD#1 ORIF periprosthetic left distal femur fracture Plan Plan of Care Patient is allowed weightbearing as tolerated no hip precautions or other restrictions Medical supportive care Anticoagulation as indicated Justicifation of Admission Dx: Justifications for Admission: Justification of Admission Dx: N/A CHRISTOPHER CALDERON MD May 15, 2020 11:38
--- NOTE | 2020-05-15 12:13 | PDOC ---
[facility] [facility] PROGRESS NOTE Date of Service DOS: DATE: 05/15/20 TIME: 12:11 Chief Complaint Chief Complaint Mechanical fall status post left hip ORIF 05/14/2020 NEYDA due to vasomotor nephropathy Elevated troponins concern for demand ischemia Admit to medicine for further management Fall precautions Cardiology consult for preoperative risk ratification PT OT Lovenox for DVT prophylaxis Protonix GI prophylaxis ADA diet Full code Discussed with RN and DAVID Disposition pending after PT OT evaluation Surrogate decision maker is undesignated History of Present Illness History of Present Illness 05/15/2020 No acute events overnight. Patient is T-max is 99 and saturating well on room air. Pain is well controlled. Patient's chart, labs, images were reviewed and discussed with RN 05/14/2020 No acute events overnight. Patient is afebrile and saturating well on room air. Pain is well controlled. On-call to the OR for left hip ORIF with Dr. Quijano. Currently n.p.o. Patient's chart, labs, images were reviewed and discussed with RN 05/13/2020 No acute events overnight. Patient saturating 90% on room air. Pending echocardiogram today. Patient resting comfortably in bed. Patient's chart, labs, images were reviewed and discussed with RN 75-year-old male who presents to the emergency room complaining of left hip pain. Patient experienced a fall about 4 days ago. He states that he is unsure why he fell. He denies any loss of consciousness or dizziness or unsteady gait. He was able to walk on his leg with his walker but over the last 24 hours has had increasing difficulty with walking and this morning he could not walk at all. He states the pain radiates into his knee. He has had problems with this leg previously. He has a hip replacement but cannot remember who did his hip replacement. He denies hitting his head or any other injuries from the fall. He has no other complaints. Vitals/I&O Vitals/I&O: Vital Signs Date Time Temp Pulse Resp B/P (MAP) Pulse Ox O2 Delivery O2 Flow Rate FiO2 05/15/20 11:00 99.1 84 18 119/70 (86) 95 Room Air 99.1 05/14/20 17:43 10.0 I & O 05/14/20 05/14/20 05/15/20 15:00 23:00 07:00 Intake Total 1200 ml Output Total 300 ml Balance 900 ml Physical Exam General: Alert, Oriented X3, Cooperative, No acute distress Heart: Regular rate Abdomen: Soft Extremities: No edema, Other (left hip pain ) Skin: No significant lesion Labs Labs: Laboratory Tests Test 05/14/20 12:41 05/15/20 09:40 Prothrombin Time 12.6 SEC (11.7-14.0) Prothromb Time International Ratio 1.0 (0.8-1.1) White Blood Count 9.6 x10^3/uL (4.0-11.0) Red Blood Count 3.94 x10^6/uL (4.30-5.70) Hemoglobin 12.0 g/dL (13.0-17.5) Hematocrit 35.2 % (39.0-53.0) Mean Corpuscular Volume 89 fL (79-100) Mean Corpuscular Hemoglobin 31 pg (25-35) Mean Corpuscular Hemoglobin Concent 34 g/dL (31-37) Red Cell Distribution Width 14.2 % (11.5-14.5) Platelet Count 204 x10^3/uL (140-400) Neutrophils (%) (Auto) 73 % (31-73) Lymphocytes (%) (Auto) 12 % (24-48) Monocytes (%) (Auto) 15 % (0-9) Eosinophils (%) (Auto) 0 % (0-3) Basophils (%) (Auto) 0 % (0-3) Neutrophils # (Auto) 7.0 x10^3/uL (1.8-7.7) Lymphocytes # (Auto) 1.1 x10^3/uL (1.0-4.8) Monocytes # (Auto) 1.4 x10^3/uL (0.0-1.1) Eosinophils # (Auto) 0.0 x10^3/uL (0.0-0.7) Basophils # (Auto) 0.0 x10^3/uL (0.0-0.2) Sodium Level 139 mmol/L (136-145) Potassium Level 4.7 mmol/L (3.5-5.1) Chloride Level 104 mmol/L (98-107) Carbon Dioxide Level 23 mmol/L (21-32) Anion Gap 12 (6-14) Blood Urea Nitrogen 34 mg/dL (8-26) Creatinine 1.6 mg/dL (0.7-1.3) Estimated GFR (Cockcroft-Gault) 42.5 Glucose Level 123 mg/dL (70-99) Calcium Level 9.1 mg/dL (8.5-10.1) Phosphorus Level 3.8 mg/dL (2.6-4.7) Magnesium Level 2.0 mg/dL (1.8-2.4) Assessment and Plan Assessmemt and Plan Problems Medical Problems: (1) Fall Status: Acute Comment Review of Relevant I have reviewed the following items hima (where applicable) has been applied. Medications: Current Medications Medications (Trade) Dose Ordered Sig/Yuniel Route PRN Reason Start Time Stop Time Status Last Admin Dose Admin Ringer's Solution 1,000 ml @ 75 mls/hr 1X ONCE IV 05/14/20 14:45 05/15/20 04:04 DC 05/14/20 14:33 Bupivacaine HCl (Sensorcaine Mpf 0.5%) 30 ml STK-MED ONCE .ROUTE 05/14/20 16:08 05/14/20 16:08 DC 05/14/20 17:17 Fentanyl Citrate (Fentanyl 2ml Vial) 50 mcg PRN Q5MIN PRN IVP MODERATE PAIN 4-6 05/14/20 17:45 05/15/20 17:44 05/14/20 18:06 Ringer's Solution 1,000 ml @ 30 mls/hr Q24H IV 05/14/20 17:45 05/15/20 05:44 DC 05/14/20 17:00 Justifications for Admission Other Justification NOE MANUEL MD May 15, 2020 12:13
--- NOTE | 2020-05-15 13:21 | PDOC ---
PROGRESS NOTES Date of Service DATE: 05/15/20 TIME: 13:18 Subjective Subjective Patient seen and evaluated Objective Objective Vital Signs Date Time Temp Pulse Resp B/P (MAP) Pulse Ox O2 Delivery O2 Flow Rate FiO2 05/15/20 11:00 99.1 84 18 119/70 (86) 95 Room Air 99.1 05/14/20 17:43 10.0 Intake and Output 05/15/20 07:00 Intake Total 1200 ml Output Total 300 ml Balance 900 ml IV Total 1200 ml Output Estimated Blood Loss 300 ml # Voids 3 Physical Exam Abdomen: Normal bowel sounds Heart: Regular rate General: mild distress Lungs: Clear to auscultation Assessment Assessment Problems Medical Problems: (1) Fall Status: Acute Postop day #1 for ORIF of a left distal femoral fracture. Patient has been doing well. Continue treatment as per orthopedics. Mild troponin elevation; peak 0.3. EKG with lateral t-wave inversion. No previous EKG for comparison. No chest pain. Echocardiogram shows normal ejection fraction of 65 to 70%. Patient remains in a sinus rhythm. We will continue present medications including aspirin, beta-blockers and statins. Outpatient follow-up. CKD. Continue to monitor. Hypertension; controlled Hyperlipidemia; LDL 179. Statin. Comment Review of Relevant I have reviewed the following items hima (where applicable) has been applied. Labs Laboratory Tests Test 05/14/20 12:41 05/15/20 09:40 Prothrombin Time 12.6 SEC (11.7-14.0) Prothromb Time International Ratio 1.0 (0.8-1.1) White Blood Count 9.6 x10^3/uL (4.0-11.0) Red Blood Count 3.94 x10^6/uL (4.30-5.70) Hemoglobin 12.0 g/dL (13.0-17.5) Hematocrit 35.2 % (39.0-53.0) Mean Corpuscular Volume 89 fL (79-100) Mean Corpuscular Hemoglobin 31 pg (25-35) Mean Corpuscular Hemoglobin Concent 34 g/dL (31-37) Red Cell Distribution Width 14.2 % (11.5-14.5) Platelet Count 204 x10^3/uL (140-400) Neutrophils (%) (Auto) 73 % (31-73) Lymphocytes (%) (Auto) 12 % (24-48) Monocytes (%) (Auto) 15 % (0-9) Eosinophils (%) (Auto) 0 % (0-3) Basophils (%) (Auto) 0 % (0-3) Neutrophils # (Auto) 7.0 x10^3/uL (1.8-7.7) Lymphocytes # (Auto) 1.1 x10^3/uL (1.0-4.8) Monocytes # (Auto) 1.4 x10^3/uL (0.0-1.1) Eosinophils # (Auto) 0.0 x10^3/uL (0.0-0.7) Basophils # (Auto) 0.0 x10^3/uL (0.0-0.2) Sodium Level 139 mmol/L (136-145) Potassium Level 4.7 mmol/L (3.5-5.1) Chloride Level 104 mmol/L (98-107) Carbon Dioxide Level 23 mmol/L (21-32) Anion Gap 12 (6-14) Blood Urea Nitrogen 34 mg/dL (8-26) Creatinine 1.6 mg/dL (0.7-1.3) Estimated GFR (Cockcroft-Gault) 42.5 Glucose Level 123 mg/dL (70-99) Calcium Level 9.1 mg/dL (8.5-10.1) Phosphorus Level 3.8 mg/dL (2.6-4.7) Magnesium Level 2.0 mg/dL (1.8-2.4) Laboratory Tests Test 05/15/20 09:40 White Blood Count 9.6 x10^3/uL (4.0-11.0) Red Blood Count 3.94 x10^6/uL (4.30-5.70) Hemoglobin 12.0 g/dL (13.0-17.5) Hematocrit 35.2 % (39.0-53.0) Mean Corpuscular Volume 89 fL (79-100) Mean Corpuscular Hemoglobin 31 pg (25-35) Mean Corpuscular Hemoglobin Concent 34 g/dL (31-37) Red Cell Distribution Width 14.2 % (11.5-14.5) Platelet Count 204 x10^3/uL (140-400) Neutrophils (%) (Auto) 73 % (31-73) Lymphocytes (%) (Auto) 12 % (24-48) Monocytes (%) (Auto) 15 % (0-9) Eosinophils (%) (Auto) 0 % (0-3) Basophils (%) (Auto) 0 % (0-3) Neutrophils # (Auto) 7.0 x10^3/uL (1.8-7.7) Lymphocytes # (Auto) 1.1 x10^3/uL (1.0-4.8) Monocytes # (Auto) 1.4 x10^3/uL (0.0-1.1) Eosinophils # (Auto) 0.0 x10^3/uL (0.0-0.7) Basophils # (Auto) 0.0 x10^3/uL (0.0-0.2) Sodium Level 139 mmol/L (136-145) Potassium Level 4.7 mmol/L (3.5-5.1) Chloride Level 104 mmol/L (98-107) Carbon Dioxide Level 23 mmol/L (21-32) Anion Gap 12 (6-14) Blood Urea Nitrogen 34 mg/dL (8-26) Creatinine 1.6 mg/dL (0.7-1.3) Estimated GFR (Cockcroft-Gault) 42.5 Glucose Level 123 mg/dL (70-99) Calcium Level 9.1 mg/dL (8.5-10.1) Phosphorus Level 3.8 mg/dL (2.6-4.7) Magnesium Level 2.0 mg/dL (1.8-2.4) Medications Current Medications Ondansetron HCl (Zofran) 4 mg PRN Q6HRS PRN IVP NAUSEA/VOMITING; Start 05/12/20 at 07:15; Stop 05/12/20 at 20:00; Status DC Fentanyl Citrate (Fentanyl 2ml Vial) 25 mcg PRN Q5MIN PRN IVP MILD PAIN 1-3; Start 05/12/20 at 07:15; Stop 05/12/20 at 20:00; Status DC Fentanyl Citrate (Fentanyl 2ml Vial) 50 mcg PRN Q5MIN PRN IVP MODERATE TO SEVERE PAIN Last administered on 05/12/20at 09:37; Start 05/12/20 at 07:15; Stop 05/12/20 at 20:00; Status DC Morphine Sulfate (Morphine Sulfate) 1 mg PRN Q10MIN PRN IVP SEVERE PAIN 7-10; Start 05/12/20 at 07:15; Stop 05/12/20 at 20:00; Status DC Ringer's Solution 1,000 ml @ 30 mls/hr Q24H IV Last administered on 05/12/20at 09:38; Start 05/12/20 at 07:15; Stop 05/12/20 at 19:14; Status DC Lidocaine HCl (Xylocaine-Mpf 1% 2ml Vial) 2 ml 1X PRN PRN ID IV START; Start 05/12/20 at 07:15; Stop 05/12/20 at 20:00; Status DC Hydromorphone HCl (Dilaudid) 0.5 mg PRN Q10MIN PRN IVP SEV PAIN, Second choice; Start 05/12/20 at 07:15; Stop 05/12/20 at 20:00; Status DC Prochlorperazine Edisylate (Compazine) 5 mg PACU PRN PRN IVP NAUSEA, MRX1; Start 05/12/20 at 07:15; Stop 05/12/20 at 20:00; Status DC Aspirin (Aspirin Chewable) 324 mg 1X ONCE PO Last administered on 05/12/20at 09:35; Start 05/12/20 at 09:00; Stop 05/12/20 at 09:16; Status DC Propofol (Diprivan) 200 mg STK-MED ONCE IV ; Start 05/12/20 at 12:55; Stop 05/12/20 at 12:55; Status DC Lidocaine HCl (Lidocaine Pf 2% Vial) 5 ml STK-MED ONCE .ROUTE ; Start 05/12/20 at 12:55; Stop 05/12/20 at 12:55; Status DC Fentanyl Citrate (Fentanyl 2ml Vial) 100 mcg STK-MED ONCE .ROUTE ; Start 05/12/20 at 12:55; Stop 05/12/20 at 12:56; Status DC Perflutren Protein Type A Microsphe (Optison) 0.66 mg STK-MED ONCE IV ; Start 05/12/20 at 14:55; Stop 05/12/20 at 14:55; Status DC Metoprolol Tartrate (Lopressor) 12.5 mg BID PO Last administered on 05/15/20at 10:00; Start 05/12/20 at 21:00 Aspirin (Ecotrin) 81 mg [id number] PO Last administered on 05/15/20at 09:59; Start 05/13/20 at 08:00 Fentanyl Citrate (Fentanyl 2ml Vial) 50 mcg PRN Q2HR PRN IVP PAIN Last administered on 05/13/20at 15:25; Start 05/12/20 at 19:45 Perflutren Protein Type A Microsphe (Optison) 0.66 mg STK-MED ONCE IV ; Start 05/12/20 at 15:00; Stop 05/13/20 at 08:22; Status DC Atorvastatin Calcium (Lipitor) 40 mg QHS PO Last administered on 05/14/20at 21:21; Start 05/13/20 at 21:00 Propofol (Diprivan) 200 mg STK-MED ONCE IV ; Start 05/14/20 at 14:13; Stop 05/14/20 at 14:13; Status DC Dexamethasone Sodium Phosphate (Decadron) 4 mg STK-MED ONCE .ROUTE ; Start 05/14/20 at 14:13; Stop 05/14/20 at 14:13; Status DC Lidocaine HCl (Lidocaine Pf 2% Vial) 5 ml STK-MED ONCE .ROUTE ; Start 05/14/20 at 14:13; Stop 05/14/20 at 14:13; Status DC Fentanyl Citrate (Fentanyl 2ml Vial) 100 mcg STK-MED ONCE .ROUTE ; Start 05/14/20 at 14:13; Stop 05/14/20 at 14:13; Status DC Sevoflurane (Ultane) 90 ml STK-MED ONCE IH ; Start 05/14/20 at 14:14; Stop 05/14/20 at 14:14; Status DC Ringer's Solution 1,000 ml @ 75 mls/hr 1X ONCE IV Last administered on 05/14/20at 14:33; Start 05/14/20 at 14:45; Stop 05/15/20 at 04:04; Status DC Cefazolin Sodium (Ancef) 1 gm STK-MED ONCE IVP ; Start 05/14/20 at 15:33; Stop 05/14/20 at 15:33; Status DC Phenylephrine HCl (PHENYLEPHRINE in 0.9% NACL PF) 1 mg STK-MED ONCE IV ; Start 05/14/20 at 15:49; Stop 05/14/20 at 15:49; Status DC Hydralazine HCl (Apresoline Inj) 20 mg STK-MED ONCE .ROUTE ; Start 05/14/20 at 16:06; Stop 05/14/20 at 16:07; Status DC Bupivacaine HCl (Sensorcaine Mpf 0.5%) 30 ml STK-MED ONCE .ROUTE Last administered on 05/14/20at 17:17; Start 05/14/20 at 16:08; Stop 05/14/20 at 16:08; Status DC Fentanyl Citrate (Fentanyl 2ml Vial) 100 mcg STK-MED ONCE .ROUTE ; Start 05/14/20 at 16:11; Stop 05/14/20 at 16:11; Status DC Phenylephrine HCl (PHENYLEPHRINE in 0.9% NACL PF) 1 mg STK-MED ONCE IV ; Start 05/14/20 at 16:16; Stop 05/14/20 at 16:17; Status DC Fentanyl Citrate (Fentanyl 2ml Vial) 100 mcg STK-MED ONCE .ROUTE ; Start 05/14 at 17:40; Stop 05/14/20 at 17:40; Status DC Fentanyl Citrate (Fentanyl 2ml Vial) 25 mcg PRN Q5MIN PRN IVP MILD PAIN 1-3; Start 05/14/20 at 17:45; Stop 05/15/20 at 17:44 Fentanyl Citrate (Fentanyl 2ml Vial) 50 mcg PRN Q5MIN PRN IVP MODERATE PAIN 4-6 Last administered on 05/14/20at 18:06; Start 05/14/20 at 17:45; Stop 05/15/20 at 17:44 Morphine Sulfate (Morphine Sulfate) 1 mg PRN Q10MIN PRN IVP SEVERE PAIN 7-10; Start 05/14/20 at 17:45; Stop 05/15/20 at 17:44 Ringer's Solution 1,000 ml @ 30 mls/hr Q24H IV Last administered on 05/14/20at 17:00; Start 05/14/20 at 17:45; Stop 05/15/20 at 05:44; Status DC Active Scripts Active Reported Lisinopril 2.5 Mg Tablet 1 Tab PO DAILY Folic Acid 0.8 Mg Tablet 1 Mg PO DAILY Cyanocobalamin Injection (Cyanocobalamin (Vitamin B-12)) 1,000 Mcg/1 Ml Vial 1 Ml IM QMONTH Aspirin 81 Mg Tab.chew 1 Tab PO DAILY Tylenol (Acetaminophen) 325 Mg Tablet 1,000 Mg PO TID Vitals/I & O Vital Sign - Last 24 Hours 05/14/20 05/14/20 05/14/20 05/14/20 14:30 17:11 17:11 17:26 Temp 97.6 97.6 97.6 97.6 Pulse 86 96 95 Resp 15 20 20 B/P (MAP) 136/71 190/86 136/79 Pulse Ox 94 99 100 O2 Delivery Room Air Simple Mask Mask Simple Mask O2 Flow Rate 10 10 10 05/14/20 05/14/20 05/14/20 05/14/20 17:41 17:43 17:56 18:06 Pulse 95 95 Resp 20 20 20 20 B/P (MAP) 164/83 156/61 Pulse Ox 100 99 96 99 O2 Delivery Simple Mask Simple Mask Room Air Room Air O2 Flow Rate 10 10.0 05/14/20 05/14/20 05/14/20 05/14/20 18:28 18:36 19:00 19:40 Temp 98.8 98.8 Pulse 96 Resp 20 B/P (MAP) 156/76 (102) Pulse Ox 94 O2 Delivery Room Air Room Air Room Air Room Air 05/14/20 05/14/20 05/15/20 05/15/20 21:21 23:05 03:07 07:00 Temp 99.7 99.1 99.2 99.7 99.1 99.2 Pulse 96 95 90 91 Resp 18 18 18 B/P (MAP) 156/76 142/81 (101) 123/67 (85) 127/70 (89) Pulse Ox 99 95 96 O2 Delivery Room Air Room Air Room Air 05/15/20 05/15/20 10:00 11:00 Temp 99.1 99.1 Pulse 91 84 Resp 18 B/P (MAP) 127/70 119/70 (86) Pulse Ox 95 O2 Delivery Room Air Intake and Output 05/14/20 05/14/20 05/15/20 15:00 23:00 07:00 Intake Total 1200 ml Output Total 300 ml Balance 900 ml Justifications for Admission Other Justification SHANNON BUI MD May 15, 2020 13:21
[2020-05-15 15:00] VITALS: BP 118/56
[2020-05-15 19:00] VITALS: BP 138/68
[2020-05-15] MEDS: ATORVASTATIN CALCIUM 40 MG TABLET. PO SCH (20:49)
[2020-05-15 23:00] VITALS: BP 127/67
--- NOTE | 2020-05-15 23:19 | NUR ---
No arrhythmias seen in 48 hours. Pt. not wanting to keep monitor on so telemetry dc'd per protocol.
[2020-05-16 03:00] VITALS: BP 114/56
[2020-05-16 07:00] VITALS: BP 141/61
[2020-05-16] MEDS: ASPIRIN ENTERIC COATED 81 MG TABLET.DR. PO SCH (08:43)
[2020-05-16] MEDS: METOPROLOL TART IMMED RELEASE 25 MG TABLET. PO SCH ×2 (08:43→20:43)
--- NOTE | 2020-05-16 10:07 | PDOC ---
[facility] [facility] PROGRESS NOTE Date of Service DOS: DATE: 05/16/20 TIME: 10:03 Chief Complaint Chief Complaint Mechanical fall status post left hip ORIF 05/14/2020 NEYDA due to vasomotor nephropathy Elevated troponins concern for demand ischemia History of Present Illness History of Present Illness 05/16/2020 Patient seen and examined Patient pleasantly confused Charts reviewed DWRN 05/15/2020 No acute events overnight. Patient is T-max is 99 and saturating well on room air. Pain is well controlled. Patient's chart, labs, images were reviewed and discussed with RN 05/14/2020 No acute events overnight. Patient is afebrile and saturating well on room air. Pain is well controlled. On-call to the OR for left hip ORIF with Dr. Quijano. Currently n.p.o. Patient's chart, labs, images were reviewed and discussed with RN 05/13/2020 No acute events overnight. Patient saturating 90% on room air. Pending ec hocardiogram today. Patient resting comfortably in bed. Patient's chart, labs, images were reviewed and discussed with RN 75-year-old male who presents to the emergency room complaining of left hip pain. Patient experienced a fall about 4 days ago. He states that he is unsure why he fell. He denies any loss of consciousness or dizziness or unsteady gait. He was able to walk on his leg with his walker but over the last 24 hours has had increasing difficulty with walking and this morning he could not walk at all. He states the pain radiates into his knee. He has had problems with this leg previously. He has a hip replacement but cannot remember who did his hip replacement. He denies hitting his head or any other injuries from the fall. He has no other complaints. Vitals/I&O Vitals/I&O: Vital Signs Date Time Temp Pulse Resp B/P (MAP) Pulse Ox O2 Delivery O2 Flow Rate FiO2 05/16/20 08:43 83 141/61 05/16/20 07:00 98.9 18 98 Room Air 98.9 I & O 05/15/20 05/15/20 05/16/20 15:00 23:00 07:00 Intake Total 200 ml 200 ml 300 ml Balance 200 ml 200 ml 300 ml Physical Exam General: Alert, Cooperative, mild distress Heart: Regular rate, Normal S1, Normal S2 Lungs: Clear, Wheezing Abdomen: Normal bowel sounds Extremities: No clubbing, No cyanosis, No edema, Other (left hip pain ) Skin: No rashes, No breakdown, No significant lesion Assessment and Plan Assessmemt and Plan Assessment Mechanical fall status post left hip ORIF 05/14/2020 NEYDA due to vasomotor nephropathy Elevated troponins concern for demand ischemia Plan DVT PPX PT/OT Appreciate subspecialty input Trend labs Continue home meds Problems Medical Problems: (1) Fall Status: Acute Comment Review of Relevant I have reviewed the following items hima (where applicable) has been applied. Justifications for Admission Other Justification JIMBO RONQUILLO III DO May 16, 2020 10:07
--- NOTE | 2020-05-16 10:25 | PDOC ---
PROGRESS NOTES Date of Service DATE: 05/16/20 TIME: 10:23 Subjective Subjective Problems overnight: Resting comfortably, no complaints Objective Vital Signs Vital Signs Date Time Temp Pulse Resp B/P (MAP) Pulse Ox O2 Delivery O2 Flow Rate FiO2 05/16/20 08:43 83 141/61 05/16/20 07:00 98.9 18 98 Room Air 98.9 05/14/20 17:43 10.0 Physical Exam Dressing clean dry intact distal neurovascular status intact good motion of hip knee and ankle bilaterally Labs Laboratory Tests Test 05/14/20 12:41 05/15/20 09:40 Prothrombin Time 12.6 SEC (11.7-14.0) Prothromb Time International Ratio 1.0 (0.8-1.1) White Blood Count 9.6 x10^3/uL (4.0-11.0) Red Blood Count 3.94 x10^6/uL (4.30-5.70) Hemoglobin 12.0 g/dL (13.0-17.5) Hematocrit 35.2 % (39.0-53.0) Mean Corpuscular Volume 89 fL (79-100) Mean Corpuscular Hemoglobin 31 pg (25-35) Mean Corpuscular Hemoglobin Concent 34 g/dL (31-37) Red Cell Distribution Width 14.2 % (11.5-14.5) Platelet Count 204 x10^3/uL (140-400) Neutrophils (%) (Auto) 73 % (31-73) Lymphocytes (%) (Auto) 12 % (24-48) Monocytes (%) (Auto) 15 % (0-9) Eosinophils (%) (Auto) 0 % (0-3) Basophils (%) (Auto) 0 % (0-3) Neutrophils # (Auto) 7.0 x10^3/uL (1.8-7.7) Lymphocytes # (Auto) 1.1 x10^3/uL (1.0-4.8) Monocytes # (Auto) 1.4 x10^3/uL (0.0-1.1) Eosinophils # (Auto) 0.0 x10^3/uL (0.0-0.7) Basophils # (Auto) 0.0 x10^3/uL (0.0-0.2) Sodium Level 139 mmol/L (136-145) Potassium Level 4.7 mmol/L (3.5-5.1) Chloride Level 104 mmol/L (98-107) Carbon Dioxide Level 23 mmol/L (21-32) Anion Gap 12 (6-14) Blood Urea Nitrogen 34 mg/dL (8-26) Creatinine 1.6 mg/dL (0.7-1.3) Estimated GFR (Cockcroft-Gault) 42.5 Glucose Level 123 mg/dL (70-99) Calcium Level 9.1 mg/dL (8.5-10.1) Phosphorus Level 3.8 mg/dL (2.6-4.7) Magnesium Level 2.0 mg/dL (1.8-2.4) Assessment Assessment POD#fixation of periprosthetic femur fracture Plan Plan of Care Mobilize with physical therapy weightbearing as tolerated I have no objection to anticoagulation although it is is a judgment call because of his ability to fully bear weight and mobilize as tolerated at present combined with the possible dementia and fall risk concerns Continue medical management stable from an orthopedic standpoint Justicifation of Admission Dx: Justifications for Admission: Justification of Admission Dx: N/A CHRISTOPHER CALDERON MD May 16, 2020 10:25
[2020-05-16 11:00] VITALS: BP 120/58
[2020-05-16] MEDS: HYDROcodone/APAP 5/325MG 1 TAB TABLET PO PRN ×2 (13:36→20:42)
[2020-05-16 15:00] VITALS: BP 121/55
[2020-05-16 19:00] VITALS: BP 147/72
[2020-05-16] MEDS: ATORVASTATIN CALCIUM 40 MG TABLET. PO SCH (20:41)
[2020-05-16 23:00] VITALS: BP 116/63
[2020-05-17 03:00] VITALS: BP 115/57
[2020-05-17] MEDS: HYDROcodone/APAP 5/325MG 1 TAB TABLET PO PRN ×3 (03:37→18:42)
[2020-05-17 07:00] VITALS: BP 131/65
[2020-05-17] MEDS: ASPIRIN ENTERIC COATED 81 MG TABLET.DR. PO SCH (08:42)
[2020-05-17] MEDS: METOPROLOL TART IMMED RELEASE 25 MG TABLET. PO SCH ×2 (08:43→20:02)
[2020-05-17 11:00] VITALS: BP 105/50
--- NOTE | 2020-05-17 11:24 | PDOC ---
[facility] [facility] PROGRESS NOTE Date of Service DOS: DATE: 05/17/20 TIME: 11:22 Chief Complaint Chief Complaint Mechanical fall status post left hip ORIF 05/14/2020 NEYDA due to vasomotor nephropathy Elevated troponins concern for demand ischemia History of Present Illness History of Present Illness 05/17/2020 Patient seen and examined Patient asleep upon exam Afebrile Discussed with RN Charts reviewed 05/16/2020 Patient seen and examined Patient pleasantly confused Charts reviewed DWRN 05/15/2020 No acute events overnight. Patient is T-max is 99 and saturating well on room air. Pain is well controlled. Patient's chart, labs, images were reviewed and discussed with RN 05/14/2020 No acute events overnight. Patient is afebrile and saturating well on room air. Pain is well controlled. On-call to the OR for left hip ORIF with Dr. Quijano. Currently n.p.o. Patient's chart, labs, images were reviewed and discussed with RN 05/13/2020 No acute events overnight. Patient saturating 90% on room air. Pending echocardiogram today. Patient resting comfortably in bed. Patient's chart, labs, images were reviewed and discussed with RN 75-year-old male who presents to the emergency room complaining of left hip pain. Patient experienced a fall about 4 days ago. He states that he is unsure why he fell. He denies any loss of consciousness or dizziness or unsteady gait. He was able to walk on his leg with his walker but over the last 24 hours has had increasing difficulty with walking and this morning he could not walk at all. He states the pain radiates into his knee. He has had problems with this leg previously. He has a hip replacement but cannot remember who did his hip replacement. He denies hitting his head or any other injuries from the fall. He has no other complaints. Vitals/I&O Vitals/I&O: Vital Signs Date Time Temp Pulse Resp B/P (MAP) Pulse Ox O2 Delivery O2 Flow Rate FiO2 05/17/20 09:43 Room Air 05/17/20 08:43 70 131/65 05/17/20 07:00 98.1 18 97 98.1 05/16/20 20:42 10.0 I & O 1/2/21 1/2/21 1/3/21 15:00 23:00 07:00 Intake Total 300 ml 200 ml 500 ml Balance 300 ml 200 ml 500 ml Physical Exam General: Alert, Cooperative, mild distress Heart: Regular rate, Normal S1, Normal S2 Lungs: Clear, Wheezing Abdomen: Normal bowel sounds Extremities: No clubbing, No cyanosis, No edema, Other (left hip pain ) Skin: No rashes, No breakdown, No significant lesion Assessment and Plan Assessmemt and Plan Problems Medical Problems: (1) Fall Status: Acute ASSESSMENT Mechanical fall status post left hip ORIF 05/14/2020 NEYDA due to vasomotor nephropathy Elevated troponins concern for demand ischemia PLAN Continue monitoring Continue home meds DVT ppx - lovenox started Trend labs Full code Comment Review of Relevant I have reviewed the following items hima (where applicable) has been applied. Medications: Current Medications Medications (Trade) Dose Ordered Sig/Yuniel Route PRN Reason Start Time Stop Time Status Last Admin Dose Admin Acetaminophen/ Hydrocodone Bitart (Lortab 5/325) 1 tab PRN Q6HRS PRN PO PAIN 05/16/20 13:30 05/17/20 08:43 Justifications for Admission Other Justification JIMBO RONQUILLO III DO May 17, 2020 11:24
[2020-05-17 15:00] VITALS: BP 107/53
[2020-05-17] MEDS ORDERED: ENOXAPARIN 40 MG/0.4 ML SYRINGE. SQ SCH (15:00)
[2020-05-17 19:00] VITALS: BP 132/68
[2020-05-17] MEDS: ATORVASTATIN CALCIUM 40 MG TABLET. PO SCH (20:01)
[2020-05-17] MEDS: ENOXAPARIN 40 MG/0.4 ML SYRINGE. SQ SCH (20:03)
[2020-05-17 23:00] VITALS: BP 118/69
[2020-05-18 03:00] VITALS: BP 135/65
[2020-05-18 07:00] VITALS: BP 128/65
[2020-05-18] MEDS: METOPROLOL TART IMMED RELEASE 25 MG TABLET. PO SCH ×2 (08:30→20:29)
[2020-05-18] MEDS: ASPIRIN ENTERIC COATED 81 MG TABLET.DR. PO SCH (08:30)
[2020-05-18 11:00] VITALS: BP 112/57
[2020-05-18 15:00] VITALS: BP 112/54
[2020-05-18 19:00] VITALS: BP 128/68
--- NOTE | 2020-05-18 20:24 | PDOC ---
PROGRESS NOTES Date of Service: DATE: 05/18/20 TIME: 20:23 Chief Complaint Chief Complaint Mechanical fall status post left hip ORIF 05/14/2020 NEYDA due to vasomotor nephropathy Elevated troponins secondary to demand ischemia Plan Hopefully discharge in the a.m. when bed is available History of Present Illness History of Present Illness 05/18/2020 No acute events reported overnight, case discussed with nursing staff patient in no acute distress no complaints during my visit 05/17/2020 Patient seen and examined Patient asleep upon exam Afebrile Discussed with RN Charts reviewed 05/16/2020 Patient seen and examined Patient pleasantly confused Charts reviewed DWRN 05/15/2020 No acute events overnight. Patient is T-max is 99 and saturating well on room air. Pain is well controlled. Patient's chart, labs, images were reviewed and discussed with RN 05/14/2020 No acute events overnight. Patient is afebrile and saturating well on room air. Pain is well controlled. On-call to the OR for left hip ORIF with Dr. Quijano. Currently n.p.o. Patient's chart, labs, images were reviewed and discussed with RN 05/13/2020 No acute events overnight. Patient saturating 90% on room air. Pending echocardiogram today. Patient resting comfortably in bed. Patient's chart, labs, images were reviewed and discussed with RN 75-year-old male who presents to the emergency room complaining of left hip pain. Patient experienced a fall about 4 days ago. He states that he is unsure why he fell. He denies any loss of consciousness or dizziness or unsteady gait. He was able to walk on his leg with his walker but over the last 24 hours has had increasing difficulty with walking and this morning he could not walk at all. He states the pain radiates into his knee. He has had problems with this leg previously. He has a hip replacement but cannot remember who did his hip replacement. He denies hitting his head or any other injuries from the fall. He has no other complaints. Vitals Vitals Vital Signs Date Time Temp Pulse Resp B/P (MAP) Pulse Ox O2 Delivery O2 Flow Rate FiO2 05/18/20 19:00 97.7 84 18 128/68 (88) 99 Room Air 97.7 Physical Exam General: Alert, Cooperative, mild distress Heart: Regular rate, Normal S1, Normal S2 Lungs: Clear, Wheezing Abdomen: Normal bowel sounds Extremities: No clubbing, No cyanosis, No edema, Other (left hip pain ) Skin: No rashes, No breakdown, No significant lesion Labs LABS Current Medications Medications (Trade) Dose Ordered Sig/Yuniel Route PRN Reason Start Time Stop Time Status Last Admin Dose Admin Ondansetron HCl (Zofran) 4 mg PRN Q6HRS PRN IVP NAUSEA/VOMITING 05/12/20 07:15 05/12/20 20:00 DC Fentanyl Citrate (Fentanyl 2ml Vial) 25 mcg PRN Q5MIN PRN IVP MILD PAIN 1-3 05/12/20 07:15 05/12/20 20:00 DC Fentanyl Citrate (Fentanyl 2ml Vial) 50 mcg PRN Q5MIN PRN IVP MODERATE TO SEVERE PAIN 05/12/20 07:15 05/12/20 20:00 DC 05/12/20 09:37 Morphine Sulfate (Morphine Sulfate) 1 mg PRN Q10MIN PRN IVP SEVERE PAIN 7-10 05/12/20 07:15 05/12/20 20:00 DC Ringer's Solution 1,000 ml @ 30 mls/hr Q24H IV 05/12/20 07:15 05/12/20 19:14 DC 05/12/20 09:38 Lidocaine HCl (Xylocaine-Mpf 1% 2ml Vial) 2 ml 1X PRN PRN ID IV START 05/12/20 07:15 05/12/20 20:00 DC Hydromorphone HCl (Dilaudid) 0.5 mg PRN Q10MIN PRN IVP SEV PAIN, Second choice 05/12/20 07:15 05/12/20 20:00 DC Prochlorperazine Edisylate (Compazine) 5 mg PACU PRN PRN IVP NAUSEA, MRX1 05/12/20 07:15 05/12/20 20:00 DC Aspirin (Aspirin Chewable) 324 mg 1X ONCE PO 05/12/20 09:00 05/12/20 09:16 DC 05/12/20 09:35 Propofol (Diprivan) 200 mg STK-MED ONCE IV 05/12/20 12:55 05/12/20 12:55 DC Lidocaine HCl (Lidocaine Pf 2% Vial) 5 ml STK-MED ONCE .ROUTE 05/12/20 12:55 05/12/20 12:55 DC Fentanyl Citrate (Fentanyl 2ml Vial) 100 mcg STK-MED ONCE .ROUTE 05/12/20 12:55 05/12/20 12:56 DC Perflutren Protein Type A Microsphe (Optison) 0.66 mg STK-MED ONCE IV 05/12/20 14:55 05/12/20 14:55 DC Metoprolol Tartrate (Lopressor) 12.5 mg BID PO 05/12/20 21:00 05/18/20 08:30 Aspirin (Ecotrin) 81 mg DAILYWBKFT PO 05/13/20 08:00 05/18/20 08:30 Fentanyl Citrate (Fentanyl 2ml Vial) 50 mcg PRN Q2HR PRN IVP PAIN 05/12/20 19:45 05/13/20 15:25 Perflutren Protein Type A Microsphe (Optison) 0.66 mg STK-MED ONCE IV 05/12/20 15:00 05/13/20 08:22 DC Atorvastatin Calcium (Lipitor) 40 mg QHS PO 05/13/20 21:00 05/17/20 20:01 Propofol (Diprivan) 200 mg STK-MED ONCE IV 05/14/20 14:13 05/14/20 14:13 DC Dexamethasone Sodium Phosphate (Decadron) 4 mg STK-MED ONCE .ROUTE 05/14/20 14:13 05/14/20 14:13 DC Lidocaine HCl (Lidocaine Pf 2% Vial) 5 ml STK-MED ONCE .ROUTE 05/14/20 14:13 05/14/20 14:13 DC Fentanyl Citrate (Fentanyl 2ml Vial) 100 mcg STK-MED ONCE .ROUTE 05/14/20 14:13 05/14/20 14:13 DC Sevoflurane (Ultane) 90 ml STK-MED ONCE IH 05/14/20 14:14 05/14/20 14:14 DC Ringer's Solution 1,000 ml @ 75 mls/hr 1X ONCE IV 05/14/20 14:45 05/15/20 04:04 DC 05/14/20 14:33 Cefazolin Sodium (Ancef) 1 gm STK-MED ONCE IVP 05/14/20 15:33 05/14/20 15:33 DC Phenylephrine HCl (PHENYLEPHRINE in 0.9% NACL PF) 1 mg STK-MED ONCE IV 05/14/20 15:49 05/14/20 15:49 DC Hydralazine HCl (Apresoline Inj) 20 mg STK-MED ONCE .ROUTE 05/14/20 16:06 05/14/20 16:07 DC Bupivacaine HCl (Sensorcaine Mpf 0.5%) 30 ml STK-MED ONCE .ROUTE 05/14/20 16:08 05/14/20 16:08 DC 05/14/20 17:17 Fentanyl Citrate (Fentanyl 2ml Vial) 100 mcg STK-MED ONCE .ROUTE 05/14/20 16:11 05/14/20 16:11 DC Phenylephrine HCl (PHENYLEPHRINE in 0.9% NACL PF) 1 mg STK-MED ONCE IV 05/14/20 16:16 05/14/20 16:17 DC Fentanyl Citrate (Fentanyl 2ml Vial) 100 mcg STK-MED ONCE .ROUTE 05/14/20 17:40 05/14/20 17:40 DC Fentanyl Citrate (Fentanyl 2ml Vial) 25 mcg PRN Q5MIN PRN IVP MILD PAIN 1-3 05/14/20 17:45 05/15/20 17:44 DC Fentanyl Citrate (Fentanyl 2ml Vial) 50 mcg PRN Q5MIN PRN IVP MODERATE PAIN 4-6 05/14/20 17:45 05/15/20 17:44 DC 05/14/20 18:06 Morphine Sulfate (Morphine Sulfate) 1 mg PRN Q10MIN PRN IVP SEVERE PAIN 7-10 05/14/20 17:45 05/15/20 17:44 DC Ringer's Solution 1,000 ml @ 30 mls/hr Q24H IV 05/14/20 17:45 05/15/20 05:44 DC 05/14/20 17:00 Acetaminophen/ Hydrocodone Bitart (Lortab 5/325) 1 tab PRN Q6HRS PRN PO PAIN 05/16/20 13:30 05/17/20 18:42 Enoxaparin Sodium (Lovenox 40mg Syringe) 40 mg Q24H SQ 05/17/20 15:00 05/17/20 11:37 DC Enoxaparin Sodium (Lovenox 40mg Syringe) 40 mg Q24H SQ 05/17/20 21:00 05/17/20 20:03 Assessment and Plan Assessmemt and Plan Problems Medical Problems: (1) Fall Status: Acute Comment Review of Relevant I have reviewed the following items hima (where applicable) has been applied. Medications Current Medications Ondansetron HCl (Zofran) 4 mg PRN Q6HRS PRN IVP NAUSEA/VOMITING; Start 05/12/20 at 07:15; Stop 05/12/20 at 20:00; Status DC Fentanyl Citrate (Fentanyl 2ml Vial) 25 mcg PRN Q5MIN PRN IVP MILD PAIN 1-3; Start 05/12/20 at 07:15; Stop 05/12/20 at 20:00; Status DC Fentanyl Citrate (Fentanyl 2ml Vial) 50 mcg PRN Q5MIN PRN IVP MODERATE TO SEVERE PAIN Last administered on 05/12/20at 09:37; Start 05/12/20 at 07:15; Stop 05/12/20 at 20:00; Status DC Morphine Sulfate (Morphine Sulfate) 1 mg PRN Q10MIN PRN IVP SEVERE PAIN 7-10; Start 05/12/20 at 07:15; Stop 05/12/20 at 20:00; Status DC Ringer's Solution 1,000 ml @ 30 mls/hr Q24H IV Last administered on 05/12/20at 09:38; Start 05/12/20 at 07:15; Stop 05/12/20 at 19:14; Status DC Lidocaine HCl (Xylocaine-Mpf 1% 2ml Vial) 2 ml 1X PRN PRN ID IV START; Start 1 07/13/19 at 07:15; Stop 05/12/20 at 20:00; Status DC Hydromorphone HCl (Dilaudid) 0.5 mg PRN Q10MIN PRN IVP SEV PAIN, Second choice; Start 05/12/20 at 07:15; Stop 05/12/20 at 20:00; Status DC Prochlorperazine Edisylate (Compazine) 5 mg PACU PRN PRN IVP NAUSEA, MRX1; Start 05/12/20 at 07:15; Stop 05/12/20 at 20:00; Status DC Aspirin (Aspirin Chewable) 324 mg 1X ONCE PO Last administered on 05/12/20at 09:35; Start 05/12/20 at 09:00; Stop 05/12/20 at 09:16; Status DC Propofol (Diprivan) 200 mg STK-MED ONCE IV ; Start 05/12/20 at 12:55; Stop 05/12/20 at 12:55; Status DC Lidocaine HCl (Lidocaine Pf 2% Vial) 5 ml STK-MED ONCE .ROUTE ; Start 05/12/20 at 12:55; Stop 05/12/20 at 12:55; Status DC Fentanyl Citrate (Fentanyl 2ml Vial) 100 mcg STK-MED ONCE .ROUTE ; Start 05/12/20 at 12:55; Stop 05/12/20 at 12:56; Status DC Perflutren Protein Type A Microsphe (Optison) 0.66 mg STK-MED ONCE IV ; Start 05/12/20 at 14:55; Stop 05/12/20 at 14:55; Status DC Metoprolol Tartrate (Lopressor) 12.5 mg BID PO Last administered on 05/18/20 08:30; Start 05/12/20 at 21:00 Aspirin (Ecotrin) 81 mg DAILYWBKFT PO Last administered on 05/18/20at 08:30; Start 05/13/20 at 08:00 Fentanyl Citrate (Fentanyl 2ml Vial) 50 mcg PRN Q2HR PRN IVP PAIN Last administered on 05/13/20at 15:25; Start 05/12/20 at 19:45 Perflutren Protein Type A Microsphe (Optison) 0.66 mg STK-MED ONCE IV ; Start 05/12/20 at 15:00; Stop 05/13/20 at 08:22; Status DC Atorvastatin Calcium (Lipitor) 40 mg QHS PO Last administered on 05/17/20at 20:01; Start 05/13/20 at 21:00 Propofol (Diprivan) 200 mg STK-MED ONCE IV ; Start 05/14/20 at 14:13; Stop 05/14/20 at 14:13; Status DC Dexamethasone Sodium Phosphate (Decadron) 4 mg STK-MED ONCE .ROUTE ; Start 05/14/20 at 14:13; Stop 05/14/20 at 14:13; Status DC Lidocaine HCl (Lidocaine Pf 2% Vial) 5 ml STK-MED ONCE .ROUTE ; Start 05/14/20 at 14:13; Stop 05/14/20 at 14:13; Status DC Fentanyl Citrate (Fentanyl 2ml Vial) 100 mcg STK-MED ONCE .ROUTE ; Start 05/14/20 at 14:13; Stop 05/14/20 at 14:13; Status DC Sevoflurane (Ultane) 90 ml STK-MED ONCE IH ; Start 05/14/20 at 14:14; Stop 05/14/20 at 14:14; Status DC Ringer's Solution 1,000 ml @ 75 mls/hr 1X ONCE IV Last administered on 05/14/20at 14:33; Start 05/14/20 at 14:45; Stop 05/15/20 at 04:04; Status DC Cefazolin Sodium (Ancef) 1 gm STK-MED ONCE IVP ; Start 05/14/20 at 15:33; Stop 05/14/20 at 15:33; Status DC Phenylephrine HCl (PHENYLEPHRINE in 0.9% NACL PF) 1 mg STK-MED ONCE IV ; Start 05/14/20 at 15:49; Stop 05/14/20 at 15:49; Status DC Hydralazine HCl (Apresoline Inj) 20 mg STK-MED ONCE .ROUTE ; Start 05/14/20 at 16:06; Stop 05/14/20 at 16:07; Status DC Bupivacaine HCl (Sensorcaine Mpf 0.5%) 30 ml STK-MED ONCE .ROUTE Last administered on 05/14/20at 17:17; Start 05/14/20 at 16:08; Stop 05/14/20 at 16:08; Status DC Fentanyl Citrate (Fentanyl 2ml Vial) 100 mcg STK-MED ONCE .ROUTE ; Start 05/14/20 at 16:11; Stop 05/14/20 at 16:11; Status DC Phenylephrine HCl (PHENYLEPHRINE in 0.9% NACL PF) 1 mg STK-MED ONCE IV ; Start 05/14/20 at 16:16; Stop 05/14/20 at 16:17; Status DC Fentanyl Citrate (Fentanyl 2ml Vial) 100 mcg STK-MED ONCE .ROUTE ; Start 05/14/20 at 17:40; Stop 05/14/20 at 17:40; Status DC Fentanyl Citrate (Fentanyl 2ml Vial) 25 mcg PRN Q5MIN PRN IVP MILD PAIN 1-3; Start 05/14/20 at 17:45; Stop 05/15/20 at 17:44; Status DC Fentanyl Citrate (Fentanyl 2ml Vial) 50 mcg PRN Q5MIN PRN IVP MODERATE PAIN 4-6 Last administered on 05/14/20at 18:06; Start 05/14/20 at 17:45; Stop 05/15/20 at 17:44; Status DC Morphine Sulfate (Morphine Sulfate) 1 mg PRN Q10MIN PRN IVP SEVERE PAIN 7-10; Start 05/14/20 at 17:45; Stop 05/15/20 at 17:44; Status DC Ringer's Solution 1,000 ml @ 30 mls/hr Q24H IV Last administered on 05/14/20at 17:00; Start 05/14/20 at 17:45; Stop 05/15/20 at 05:44; Status DC Acetaminophen/ Hydrocodone Bitart (Lortab 5/325) 1 tab PRN Q6HRS PRN PO PAIN Last administered on 05/17/20at 18:42; Start 05/16/20 at 13:30 Enoxaparin Sodium (Lovenox 40mg Syringe) 40 mg Q24H SQ ; Start 05/17/20 at 15:00; Stop 05/17/20 at 11:37; Status DC Enoxaparin Sodium (Lovenox 40mg Syringe) 40 mg Q24H SQ Last administered on 05/17/20at 20:03; Start 05/17/20 at 21:00 Active Scripts Active Reported Lisinopril 2.5 Mg Tablet 1 Tab PO DAILY Folic Acid 0.8 Mg Tablet 1 Mg PO DAILY Cyanocobalamin Injection (Cyanocobalamin (Vitamin B-12)) 1,000 Mcg/1 Ml Vial 1 Ml IM QMONTH Aspirin 81 Mg Tab.chew 1 Tab PO DAILY Tylenol (Acetaminophen) 325 Mg Tablet 1,000 Mg PO TID Vitals/I & O Vital Sign - Last 24 Hours 05/17/20 05/18/20 05/18/20 05/18/20 23:00 03:00 07:00 08:00 Temp 98.1 98.5 98.1 98.1 98.5 98.1 Pulse 77 75 63 Resp 18 18 17 B/P (MAP) 118/69 (85) 135/65 (88) 128/65 (86) Pulse Ox 98 96 96 O2 Delivery Room Air Room Air 05/18/20 05/18/20 05/18/20 05/18/20 08:30 11:00 15:00 19:00 Temp 97.8 98.3 97.7 97.8 98.3 97.7 Pulse 63 74 78 84 Resp 17 17 18 B/P (MAP) 128/65 112/57 (75) 112/54 (73) 128/68 (88) Pulse Ox 95 100 99 O2 Delivery Room Air Room Air Room Air Intake and Output 05/17/20 05/17/20 05/18/20 15:00 23:00 07:00 Intake Total 440 ml 240 ml Balance 440 ml 240 ml Justicifation of Admission Dx: Justifications for Admission: Justification of Admission Dx: N/A LIN LIM MD May 18, 2020 20:24
[2020-05-18] MEDS: HYDROcodone/APAP 5/325MG 1 TAB TABLET PO PRN (20:29)
[2020-05-18] MEDS: ATORVASTATIN CALCIUM 40 MG TABLET. PO SCH (20:29)
[2020-05-18] MEDS: ENOXAPARIN 40 MG/0.4 ML SYRINGE. SQ SCH (20:30)
[2020-05-18 23:00] VITALS: BP 113/60
[2020-05-19 02:56] VITALS: BP 118/68
[2020-05-19 07:00] VITALS: BP 132/69
[2020-05-19] MEDS: ASPIRIN ENTERIC COATED 81 MG TABLET.DR. PO SCH (09:28)
[2020-05-19] MEDS: METOPROLOL TART IMMED RELEASE 25 MG TABLET. PO SCH (09:28)
[2020-05-19 11:00] VITALS: BP 120/65
[2020-05-19] MEDS ORDERED: ATOR40TA59 PO (14:15)
[2020-05-19] MEDS ORDERED: METO25TA4 PO (14:15)
[2020-05-19] MEDS ORDERED: ENOX40DI3 SQ (14:15)
--- NOTE | 2020-05-19 14:16 | SNU/HH DC ---
DISCHARGE ORDERS DISCHARGE INFORMATION: DISCHARGE DATE: May 19, 2020 FINAL DIAGNOSIS Problems Medical Problems: (1) Fall Status: Acute CONDITION ON DISCHARGE: Stable CODE STATUS: Code Status: Full DETENTION: SNF STAY <30 DAYS: Yes POST DISCHARGE ORDERS: ACTIVITY ORDERS: Activity as tolerated DIET AFTER DISCHARGE: Cardiac DISCHARGE MEDICATIONS: Home Meds Active Scripts Metoprolol Tartrate (METOPROLOL TARTRATE) 25 Mg Tablet, 12.5 MG PO BID for htn for 30 Days, #30 TAB Prov:LIN LIM MD 05/19/20 Atorvastatin Calcium (ATORVASTATIN CALCIUM) 40 Mg Tablet, 40 MG PO QHS for dyslipidemia for 30 Days, #30 TAB Prov:LIN LIM MD 05/19/20 Enoxaparin Sodium (ENOXAPARIN SODIUM) 40 Mg/0.4 Ml Disp.syrin, 40 MG SQ Q24H for dvt prophylaxis for 28 Days, #28 DIS.SYR Prov:LIN LIM MD 05/19/20 Reported Medications Lisinopril (LISINOPRIL) 2.5 Mg Tablet, 1 TAB PO DAILY for htn, #30 TAB 5 Refills 05/12/20 Folic Acid (FOLIC ACID) 0.8 Mg Tablet, 1 MG PO DAILY for SUPPLEMENT, TAB 05/12/20 Cyanocobalamin (Vitamin B-12) (CYANOCOBALAMIN INJECTION) 1,000 Mcg/1 Ml Vial, 1 ML IM QMONTH for supplement, #1 VIAL 3 Refills 05/12/20 Aspirin (ASPIRIN) 81 Mg Tab.chew, 1 TAB PO DAILY for health, #30 TAB 3 Refills 05/12/20 Acetaminophen (TYLENOL) 325 Mg Tablet, 1000 MG PO TID for pain, TAB 05/12/20 LIN LIM MD May 19, 2020 14:16
[2020-05-19 15:00] VITALS: BP 118/64
--- NOTE | 2020-05-19 17:41 | PDOC3 ---
Discharge Summary Visit Information Date of Admission: May 12, 2020 Date of Discharge: May 19, 2020 Admitting Diagnosis Comment: Mechanical fall NEYDA due to vasomotor nephropathy Elevated troponins concern for demand ischemia Final Diagnosis Mechanical fall status post left hip ORIF 05/14/2020 NEYDA due to vasomotor nephropathy Elevated troponins secondary to demand ischemiaProblems Medical Problems: (1) Fall Status: Acute Brief Hospital Course Allergies Allergies Coded Allergies Type Severity Reaction Last Updated Verified No Known Drug Allergies 05/12/20 No Vital Signs Vital Signs Date Time Temp Pulse Resp B/P (MAP) Pulse Ox O2 Delivery O2 Flow Rate FiO2 05/19/20 11:00 98.0 71 17 120/65 (83) 97 Room Air 98.0 Brief Hospital Course 75-year-old male who presents to the emergency room complaining of left hip pain. Patient experienced a fall about 4 days ago. He states that he is unsure why he fell. He denies any loss of consciousness or dizziness or unsteady gait. He was able to walk on his leg with his walker but over the last 24 hours has had increasing difficulty with walking and this morning he could not walk at all. He states the pain radiates into his knee. He has had problems with this leg previously. He has a hip replacement but cannot remember who did his hip replacement. He denies hitting his head or any other injuries from the fall. He has no other complaints. 05/13/2020 No acute events overnight. Patient saturating 90% on room air. Pending echocardiogram today. Patient resting comfortably in bed. Patient's chart, labs, images were reviewed and discussed with RN 05/14/2020 No acute events overnight. Patient is afebrile and saturating well on room air. Pain is well controlled. On-call to the OR for left hip ORIF with Dr. Quijano. Currently n.p.o. Patient's chart, labs, images were reviewed and discussed with RN 05/15/2020 No acute events overnight. Patient is T-max is 99 and saturating well on room air. Pain is well controlled. Patient's chart, labs, images were reviewed and discussed with RN 05/16/2020 Patient seen and examined Patient pleasantly confused Charts reviewed DWR05/17/2020 Patient seen and examined Patient asleep upon exam Afebrile Discussed with RN Charts reviewed 05/18/2020 No acute events reported overnight, case discussed with nursing staff patient in no acute distress no complaints during my visit On Patient with no acute events reported overnight and patient seem to be in no acute distress during my visit. No pain reported no nausea vomiting abdominal pain reported slight discomfort over the surgical site no signs of infection. Patient will transition to a rehab facility later in the day so they can continue his recovery of his concerns addressed to the best of my ability Physical Exam General: Alert, Cooperative, mild distress Heart: Regular rate, Normal S1, Normal S2 Lungs: Clear, Wheezing Abdomen: Normal bowel sounds Extremities: No clubbing, No cyanosis, No edema, Other (left hip pain ) Skin: No rashes, No breakdown, No significant lesion Assessment Assessment IMAGING REPORT Signed PATIENT: AASHISH LA ACCOUNT: [id number] : 1945 LOCATION: ER AGE: 75 SEX: M EXAM STATUS: REG ER ORD. PHYSICIAN: HILLARY MANTILLA MD REASON: pre op PROCEDURE: CHEST AP ONLY XR CHEST 1V 05/12/2020 4:02 AM INDICATION: Preoperative COMPARISON: None available TECHNIQUE: Portable frontal view of the chest is provided. FINDINGS: The cardiomediastinal silhouette is within normal limits. Lungs are clear. There are no significant pleural effusions. There is no pulmonary vascular congestion. No pneumothorax. No suspicious osseous abnormality. IMPRESSION: There is no acute cardiopulmonary process. Electronically signed by: Jeanne Short MD (05/12/2020 4:04 AM) [facility] IMAGING REPORT Signed PATIENT: AASHISH LA ACCOUNT: [id number] : 1945 LOCATION: ER AGE: 75 SEX: M EXAM STATUS: REG ER ORD. PHYSICIAN: HILLARY MANTILLA MD REASON: fall PROCEDURE: PELVIS XR FEMUR_LEFT 1 VIEW, XR PELVIS 1-2V 05/12/2020 3:27 AM INDICATION: Fall COMPARISON: None available. TECHNIQUE: AP view the pelvis and 4 views of the left femur are provided. FINDINGS/ IMPRESSION: Left total hip arthroplasty is identified. There is an obliquely oriented fracture with minimal displacement involving the distal margin of the femoral hardware. Adjacent soft tissue swelling is present. Vascular calcifications are present. Pelvic ring appears intact. Electronically signed by: Jeanne Short MD (05/12/2020 3:53 AM) [facility] Discharge Information Condition at Discharge: Improved Follow Up: Weeks Disposition/Orders: D/C to Another Facility Scheduled Acetaminophen (Tylenol) 325 Mg Tablet, 1,000 MG PO TID for pain, (Reported) Entered as Reported by: JULIA PRIETO on 05/12/202326 Last Action: New Order on 05/12/202326 by JULIA PRIETO Aspirin (Aspirin) 81 Mg Tab.chew, 1 TAB PO DAILY for health, #30 Ref 3 (Reported) Entered as Reported by: JULIA PRIETO on 05/12/202329 Last Action: New Order on 05/12/202329 by JULIA PRIETO Atorvastatin Calcium (Atorvastatin Calcium) 40 Mg Tablet, 40 MG PO QHS for dyslipidemia for 30 Days, #30 Prescribed by: LIN LIM MD on 05/19/20 1415 Cyanocobalamin (Vitamin B-12) (Cyanocobalamin Injection) 1,000 Mcg/1 Ml Vial, 1 ML IM QMONTH for supplement, #1 Ref 3 (Reported) Entered as Reported by: JULIA PRIETO on 05/12/202329 Last Taken: Unknown Dose on 04/18/20 Last Action: New Order on 05/12/202329 by JULIA PRIETO Enoxaparin Sodium (Enoxaparin Sodium) 40 Mg/0.4 Ml Disp.syrin, 40 MG SQ Q24H for dvt prophylaxis for 28 Days, #28 Prescribed by: LIN LIM MD on 05/19/20 1415 Folic Acid (Folic Acid) 0.8 Mg Tablet, 1 MG PO DAILY for SUPPLEMENT, (Reported) Entered as Reported by: JULIA PRIETO on 05/12/202329 Last Action: New Order on 05/12/202329 by JULIA PRIETO Lisinopril (Lisinopril) 2.5 Mg Tablet, 1 TAB PO DAILY for htn, #30 Ref 5 (Reported) Entered as Reported by: JULIA PRIETO on 05/12/202329 Last Action: New Order on 05/12/202329 by JULIA PRIETO Metoprolol Tartrate (Metoprolol Tartrate) 25 Mg Tablet, 12.5 MG PO BID for htn for 30 Days, #30 Prescribed by: LIN LIM MD on 05/19/20 1415 Justicifation of Admission Dx: Justifications for Admission: Justification of Admission Dx: N/A LIN LIM MD May 19, 2020 17:41
--- NOTE | 2020-05-19 17:58 | NUR ---
[facility] discharged to [facility]. report given to FUAD Geurrier. meds and follow up reviewed. pt stable upon dc
== END 2020-05-19 17:15 | DRG 480 ==
LOC: ER 03:07 → ED HOLD 05:34 → 5 NORTH 12:35
PROVIDERS: ADMIT Internal Medicine; ATTEND Internal Medicine
PROC: 0QSC04Z Reposition Left Lower Femur with Internal Fixation Device, Open Approach (ICD-10-PCS; principal; 2020-05-14 15:00)
DX: S72.92XA Unspecified fracture of left femur, initial encounter for closed fracture (principal); N17.0 Acute kidney failure with tubular necrosis; M97.02XA Periprosthetic fracture around internal prosthetic left hip joint, initial encounter; E78.00 Pure hypercholesterolemia, unspecified; E78.5 Hyperlipidemia, unspecified; F03.90 Unspecified dementia, unspecified severity, without behavioral disturbance, psychotic disturbance, mood disturbance, and anxiety; F60.2 Antisocial personality disorder; I12.9 Hypertensive chronic kidney disease with stage 1 through stage 4 chronic kidney disease, or unspecified chronic kidney disease; N18.9 Chronic kidney disease, unspecified; Z90.49 Acquired absence of other specified parts of digestive tract; Z96.642 Presence of left artificial hip joint; F32.9 Major depressive disorder, single episode, unspecified; M19.90 Unspecified osteoarthritis, unspecified site; R07.89 Other chest pain; W01.0XXA Fall on same level from slipping, tripping and stumbling without subsequent striking against object, initial encounter; Y93.89 Activity, other specified; Y92.89 Other specified places as the place of occurrence of the external cause; Y99.8 Other external cause status; Z20.822 Contact with and (suspected) exposure to COVID-19
CPT/HCPCS: 96361; 96374; 99285; C8929; 36415; 71045; 72170; 73552; 76000; 80048; 80061; 82550; 83735; 84100; 84443; 84484; 85025; 85610; 86850; 86900; 86901; 87426; 93005; C1713; J0360; J0690; J1100; J1650; J2370; J2704; J3010; J3490; J7120; Q9956; U0003; 97110-GO; 97110-GP; 97116-GP; 97530-GO; 97530-GP; 97535-GO; C1750; G0378